=== PATIENT | female | born 1945 | race Caucasian/White ===

== ENCOUNTER 2021-04-24 12:09 | Emergency (ER) | payer MEDICARE ==
[2021-04-24] MEDS ORDERED: CIPROFLOXACIN HCL OP ONE (12:10)
[2021-04-24] MEDS ORDERED: TETRACAINE 0.5% STERI-UNIT SOL OP ONE (12:23)
[2021-04-24] MEDS ORDERED: Fluor-I-Strip/Ful-Flo OP ONE (12:23)
[2021-04-24 12:24] VITALS: O2SAT 98
[2021-04-24] MEDS: TETRACAINE 0.5% STERI-UNIT SOL OP STA (12:30)
[2021-04-24] MEDS: Eye-Stream Solution OP ONE (12:30)
[2021-04-24] MEDS: Fluor-I-Strip/Ful-Flo OP ONE (12:30)
--- NOTE | 2021-04-24 12:55 | ERPHSYRPT ---
- History of Present Illness Time Seen by Provider: 04/24/21 12:46 Source: patient Exam Limitations: no limitations Patient Subjective Stated Complaint: eye injury Triage Nursing Assessment: Patient ambulated back to ED and transferred self to bed. Patient A+O x3. Patient's skin pink, warm and dry. Patient complains of right eye injury. Patient denies injury, but states she felt like something was in her right eye yesterday. Patient light sensitive 10/10 pain. Currently 2/10 while covered. Patient's right eye noted to be red. Physician History: Patient is a 75-year-old white female who presents with severe pain and photophobia in the right eye. This started yesterday grew worse over the day bother her through the night and is still painful today. No known injury and no reason to suspect a foreign body. 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 Exposure: No Allergies/Adverse Reactions: No Known Drug Allergies Allergy (Unverified 04/24/21 12:14) Hx Influenza Vaccination/Date Given: Yes Hx Pneumococcal Vaccination/Date Given: No Immunizations Up to Date: Yes Travel Risk - International Travel Have you traveled outside of the country in past 3 weeks: No - Coronavirus Screening Are you exhibiting any of the following symptoms?: No Close contact with a COVID-19 positive Pt in past 14-21 Days: No - Vaccine Status Have you recieved a Covid-19 vaccination: Yes 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[employer] - Vaccination Dates Date of 2cond Vaccination (if applicable): July 2020 Comment: Booster Mar 2021 - Review of Systems Constitutional: No Fever, No Chills Eyes: No Symptoms Ears, Nose, & Throat: No Symptoms Respiratory: No Cough, No Dyspnea Cardiac: No Chest Pain, No Edema, No Syncope Abdominal/Gastrointestinal: No Abdominal Pain, No Nausea, No Vomiting, No Diarrhea Genitourinary Symptoms: No Dysuria Musculoskeletal: No Back Pain, No Neck Pain Skin: No Rash Neurological: No Dizziness, No Focal Weakness, No Sensory Changes Psychological: No Symptoms Endocrine: No Symptoms All Other Systems: Reviewed and Negative - Past Medical History Pertinent Past Medical History: Yes Neurological History: No Pertinent History ENT History: No Pertinent History Cardiac History: No Pertinent History Respiratory History: No Pertinent History Endocrine Medical History: Diabetes Type I Musculoskeletal History: No Pertinent History GI Medical History: Cirrhosis History: No Pertinent History Psycho-Social History: No Pertinent History Female Reproductive Disorders: No Pertinent History - Past Surgical History Past Surgical History: Yes Neuro Surgical History: No Pertinent History Gastrointestinal: Cholecystectomy Musculoskeletal: Orthopedic Surgery Female Surgical History: Hysterectomy Other Surgical History: alexus knee. 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 Eye Exam: right eye: conjunctival inflammation, corneal abrasion (Central corneal abrasion versus ulcer), left eye: normal inspection, PERRL, EOMI Ears, Nose, Throat Exam: normal ENT inspection Neck Exam: normal inspection, non-tender, supple SpO2: 98 - Course Nursing assessment & vital signs reviewed: Yes Ordered Tests: Medication Summary Discontinued Medications Generic Name Dose Route Start Last Admin Trade Name Freq PRN Reason Stop Dose Admin Fluorescein Sodium Confirm 04/24/21 12:23 Fluorescein Sodium 1 Mg/Strip Strip Administered 04/24/21 12:24 Dose 1 mg OP .STK-MED ONE Tetracaine HCl Confirm 04/24/21 12:23 Tetracaine Hcl/Pf 4 Ml Bottle Administered 04/24/21 12:24 Dose 4 ml OP .STK-MED ONE - Progress Progress: unchanged - Departure Departure Disposition: Home Clinical Impression: Corneal ulcer Condition: Stable Critical Care Time: No Referrals: CLYDE EUBANKS NP [Primary Care Provider] - Follow up/PCP as directed Instructions: Corneal Ulcer (DC) Additional Instructions: Ciprofloxacin ophthalmic solution was given in drop form in the ER. She is to continue until she sees her eye doctor tomorrow Prescriptions: Hydrocodone/Acetaminophen [Hydrocodone-Acetamin 5-325 mg] 1 tab PO Q6HPRN PRN 3 Days #12 tablet MDD 4 PRN Reason: Pain
[2021-04-24 13:05] VITALS: BP 141/86; PULSE 98
== END 2021-04-24 13:05 | disposition home or self-care (01) ==
LOC: ED 12:09
DX: H16.001 Unspecified corneal ulcer, right eye (principal); H53.141 Visual discomfort, right eye; E10.8 Type 1 diabetes mellitus with unspecified complications; Z79.4 Long term (current) use of insulin; Z79.891 Long term (current) use of opiate analgesic
CPT/HCPCS: 99283; A9270-GY

== ENCOUNTER 2021-12-14 09:04 | Day surgery (SDC) | payer MEDICARE ==
[2021-12-14] MEDS ORDERED: LIDOCAINE HCL 2% 100 MG/5 ML IJ ONE (09:05)
[2021-12-14] MEDS ORDERED: Depo-Medrol 40 MG/ML IM ONE (09:05)
[2021-12-14] MEDS ORDERED: DIPRIVAN 200 MG/20 ML IV ONE (10:26)
--- NOTE | 2021-12-14 11:27 | XRAY ---
Indication: Bilateral L4-S1 MBB. Intraoperative fluoroscopy provided for 16 seconds. Single digital spot image submitted for interpretation demonstrates posterior needle tips projecting over the expected left and right L4-S1 nerve roots. Correlate with intraoperative findings/report.
[2021-12-14] MEDS ORDERED: Lactated Ringers 1,000 ML IV ONE (12:14)
--- NOTE | 2021-12-14 14:10 | XRAY ---
16 seconds of fluoroscopy was used in surgery for a bilateral L4-S1 MBB.
== END 2021-12-14 10:50 | disposition home or self-care (01) ==
LOC: SDC-PAIN 09:04
PROVIDERS: ATTEND Psychiatry & Neurology Pain Medicine
DX: M47.816 Spondylosis without myelopathy or radiculopathy, lumbar region (principal); E11.9 Type 2 diabetes mellitus without complications; Z79.899 Other long term (current) drug therapy
CPT/HCPCS: 64493; 64494; 72020; 77002; 82947; J1030; J2704

== ENCOUNTER 2022-01-11 09:40 | Day surgery (SDC) | payer MEDICARE ==
[2022-01-11] MEDS ORDERED: BUPIVACAINE 0.5% VIAL IJ ONE (09:41)
[2022-01-11] MEDS ORDERED: Depo-Medrol 40 MG/ML IM ONE (09:41)
[2022-01-11] MEDS ORDERED: DIPRIVAN 200 MG/20 ML IV ONE ×2 (11:40→12:01)
[2022-01-11] MEDS ORDERED: Xylocaine-Mpf 2% 5 Ml Vial ONE (11:44)
[2022-01-11] MEDS ORDERED: Lactated Ringers 1,000 ML IV ONE (12:23)
--- NOTE | 2022-01-11 12:39 | XRAY ---
Indication: Bilateral L4-S1 MBB. Intraoperative fluoroscopy provided for 15 seconds. Single digital spot image submitted for interpretation demonstrates posterior needle tips projecting over the expected left and right L4-S1 nerve roots. Correlate with intraoperative findings/report.
--- NOTE | 2022-01-11 12:41 | XRAY ---
15 seconds of fluoroscopy was used in surgery for a bilateral L4-S1 MBB.
== END 2022-01-11 12:15 | disposition home or self-care (01) ==
LOC: SDC-PAIN 09:40
PROVIDERS: ATTEND Psychiatry & Neurology Pain Medicine
DX: M47.816 Spondylosis without myelopathy or radiculopathy, lumbar region (principal); E11.9 Type 2 diabetes mellitus without complications; Z79.899 Other long term (current) drug therapy
CPT/HCPCS: 64493; 64494; 72020; 77002; 82947; J1030; J2704

== ENCOUNTER 2022-02-01 09:39 | Day surgery (SDC) | payer MEDICARE ==
[2022-02-01] MEDS ORDERED: XYLOCAINE-MPF 1% 5ML SDV IJ ONE (09:40)
[2022-02-01] MEDS ORDERED: Marcaine Mpf 0.5% Vial 30 Ml IJ ONE (09:40)
[2022-02-01] MEDS ORDERED: Depo-Medrol 40 MG/ML IM ONE (09:40)
[2022-02-01] MEDS ORDERED: Lactated Ringers 1,000 ML IV ONE (10:14)
[2022-02-01] MEDS ORDERED: DIPRIVAN 200 MG/20 ML IV ONE (10:37)
--- NOTE | 2022-02-01 19:14 | XRAY ---
Indication: Right L4-S1 RFA. Intraoperative fluoroscopy provided for 26 seconds. 4 digital spot image submitted for interpretation demonstrates posterior needle tips projecting over the expected right L4-S1 nerve roots. Correlate with intraoperative findings/report.
--- NOTE | 2022-02-01 19:34 | XRAY ---
26 seconds of fluoroscopy was used in surgery for a right L4-S1 RFA.
== END 2022-02-01 11:10 | disposition home or self-care (01) ==
LOC: SDC-PAIN 09:39
PROVIDERS: ATTEND Psychiatry & Neurology Pain Medicine
DX: M47.816 Spondylosis without myelopathy or radiculopathy, lumbar region (principal); E11.9 Type 2 diabetes mellitus without complications; Z79.899 Other long term (current) drug therapy
CPT/HCPCS: 64635; 64636; 72100; 77002; 82947; 99100; J1030; J2704

== ENCOUNTER 2022-02-08 07:30 | Day surgery (SDC) | payer MEDICARE ==
[2022-02-08] MEDS ORDERED: XYLOCAINE-MPF 1% 5ML SDV IJ ONE (07:31)
[2022-02-08] MEDS ORDERED: Marcaine Mpf 0.5% Vial 30 Ml IJ ONE (07:31)
[2022-02-08] MEDS ORDERED: Depo-Medrol 40 MG/ML IM ONE (07:31)
[2022-02-08] MEDS ORDERED: DIPRIVAN 200 MG/20 ML IV ONE (08:51)
--- NOTE | 2022-02-08 10:01 | XRAY ---
Indication: Left L4-S1 RFA. Intraoperative fluoroscopy provided for 20 seconds. 5 digital spot images submitted for interpretation demonstrates posterior needle tips projecting over the expected left L4-S1 nerve roots. Correlate with intraoperative findings/report.
--- NOTE | 2022-02-08 10:06 | XRAY ---
20 seconds of fluoroscopy was used in surgery for a left L4-S1 RFA.
[2022-02-08] MEDS ORDERED: Lactated Ringers 1,000 ML IV ONE (10:16)
== END 2022-02-08 09:20 | disposition home or self-care (01) ==
LOC: SDC-PAIN 07:30
PROVIDERS: ATTEND Psychiatry & Neurology Pain Medicine
DX: M47.816 Spondylosis without myelopathy or radiculopathy, lumbar region (principal); E11.9 Type 2 diabetes mellitus without complications; Z79.899 Other long term (current) drug therapy
CPT/HCPCS: 64635; 64636; 72100; 77002; 82947; 99100; J1030; J2704

== ENCOUNTER 2022-06-16 18:43 | Emergency (ER) | payer MEDICARE ==
--- NOTE | 2022-06-16 19:19 | ERPHSYRPT ---
- History of Present Illness Source: patient, family Exam Limitations: no limitations Patient Subjective Stated Complaint: Pt states "I tripped and fell and hit my head on concrete. My left forearm hurts and both my knees are tender." Triage Nursing Assessment: PT presented alert and oriented X 3, skin pwd. Pt ambulates with a slow gait, able to speak in clear full sentences pt has bruising noted to left forehead and eyebrow, abrasion noted to left forehead, pt left cheek bruised and swollen, left upper lip swollen, bilat knee abrasions, tenderness to left forearm. Physician History: 76 yo wf tripped and fell at home injuring her glabella/L face/B forearms. Pt denies LOC but was dazed. Pain is moderate. Tetanus is up to date. Occurred: just prior to arrival Reason for Fall: tripped Injuries/Pain Location: head, face, upper (B forearms) Loss of Consciousness: no loss of consciousness, dazed Quality: aching Severity of Pain-Max: moderate Severity of Pain-Current: moderate Associated Symptoms (Fall): headache Allergies/Adverse Reactions: No Known Drug Allergies Allergy (Verified 06/16/22 18:56) Home Medications: Furosemide 40 mg [Lasix 40 MG] 40 mg PO DAILY 06/16/22 [History] Insulin Aspart [NovoLOG Insulin] 1 unit IM DAILY 06/16/22 [History] Nadolol 20 mg [Corgard 20 MG] 20 mg PO DAILY 06/16/22 [History] Ondansetron [Ondansetron Odt ] 4 mg PO Q6H PRN 06/16/22 [History] PANTOPRAZOLE 40 mg Tablet [Protonix 40MG Tablet] 40 mg PO DAILY 06/16/22 [History] Semaglutide [Ozempic] 2 mg SQ WEEKLY 06/16/22 [History] Spironolactone [Aldactone] 100 mg PO DAILY 06/16/22 [History] Sucralfate [Carafate] 1 gm PO DAILY 06/16/22 [History] Vitamin E Mixed [Vitamin E] 400 unit PO DAILY 06/16/22 [History] ursodioL [Ursodiol] 300 mg PO DAILY 06/16/22 [History] Hx Tetanus, Diphtheria Vaccination/Date Given: Yes Hx Influenza Vaccination/Date Given: Yes Hx Pneumococcal Vaccination/Date Given: No Immunizations Up to Date: Yes Travel Risk - International Travel Have you traveled outside of the country in past 3 weeks: No - Coronavirus Screening Are you exhibiting any of the following symptoms?: No Close contact with a COVID-19 positive Pt in past 14-21 Days: No - Vaccine Status Have you recieved a Covid-19 vaccination: Yes 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[employer] - Vaccination Dates Date of 2cond Vaccination (if applicable): July 2020 Comment: Booster Mar 2021 - Review of Systems Constitutional: No Symptoms Eyes: No Symptoms Ears, Nose, & Throat: No Symptoms Respiratory: No Symptoms Cardiac: No Symptoms Abdominal/Gastrointestinal: No Symptoms Genitourinary Symptoms: No Symptoms Musculoskeletal: No Symptoms, Injury Skin: No Symptoms Neurological: No Symptoms, Headache Psychological: No Symptoms Endocrine: No Symptoms Hematologic/Lymphatic: No Symptoms Immunological/Allergic: No Symptoms - Past Medical History Pertinent Past Medical History: Yes Neurological History: No Pertinent History ENT History: No Pertinent History Cardiac History: No Pertinent History Respiratory History: No Pertinent History Endocrine Medical History: Diabetes Type I Musculoskeletal History: No Pertinent History GI Medical History: Cirrhosis History: No Pertinent History Psycho-Social History: No Pertinent History Female Reproductive Disorders: No Pertinent History - Past Surgical History Past Surgical History: Yes Neuro Surgical History: No Pertinent History Gastrointestinal: Cholecystectomy Musculoskeletal: Orthopedic Surgery Female Surgical History: Hysterectomy Other Surgical History: alexus knee. left shoulder rotator cuff - Social History Smoking Status: Never smoker Exposure to second hand smoke: No Drug Use: none Patient Lives Alone: No - Nursing Vital Signs Nursing Vital Signs: Initial Vital Signs Temperature 97.8 F 06/16/22 18:50 Pulse Rate 97 H 06/16/22 18:50 Respiratory Rate 20 06/16/22 18:50 Blood Pressure 155/80 06/16/22 18:50 O2 Sat by Pulse Oximetry 98 06/16/22 18:50 Pain Scale Pain Intensity 7 Hypertensive - Margarita Coma Score Best Eye Response ([place]): (4) open spontaneously Best Verbal Response (Margarita): (5) oriented Best Motor Response ([place]): (6) obeys commands Margarita Total: 15 - Physical Exam General Appearance: no apparent distress Head Injury: swelling (L glabellar abrasion, edema, and TTP/L facial abrasion, edema, and TTP) Eye Exam: PERRL/EOMI, eyes nml inspection ENT Exam: airway nml, No evidence of ENT injury, No clear fluid (ears), No clear fluid (nose) Neck Exam: supple, trachea midline, normal inspection (C-spine NTTP) Respiratory/Chest Exam: normal breath sounds, No chest tenderness, No respiratory distress, No decreased breath sounds Cardiovascular Exam: normal heart sounds, regular rate/rhythm, normal peripheral pulses, No murmur Gastrointestinal Exam: soft, normal bowel sounds, No tenderness Back Exam: normal inspection, normal range of motion, No CVA tenderness, No vertebral tenderness (No T or L-spine TTP) Extremity Exam: normal inspection (B ventral forearms TTP/R>L/no deformity/Good radial pulses, distal sensation, and capillary return B), pelvis stable Neurologic Exam: alert, oriented x 3, 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, 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, normal mood/affect, sensation nml, No motor deficits, No sensory deficit Skin Exam: normal color, warm, dry, No rash SpO2 Interpretation: normal SpO2: 98 O2 Delivery: Room Air - Course Nursing assessment & vital signs reviewed: Yes - Radiology Exams Forearm X-ray Interpretation: Interpreted by me (B forearm's neg per ER read) - CT Exams Head CT Interpretation: Tele-radiologist Report (CT head neg per [employer]) Maxillofacial Bones CT Interpretation: Tele-radiologist Report (CT face neg per [employer]) Ordered Tests: Active Orders 24 hr Category Date Time Status FACIAL BONES WO CONTRAST [CT] Stat Exams 06/16/22 19:12 Taken FOREARM Stat Exams 06/16/22 19:12 Taken FOREARM Stat Exams 06/16/22 19:13 Taken HEAD WITHOUT CONTRAST [CT] Stat Exams 06/16/22 19:12 Taken Medication Summary Discontinued Medications Generic Name Dose Route Start Last Admin Trade Name Freq PRN Reason Stop Dose Admin Hydrocodone Bitart/Acetaminophen 2 tab 06/16/22 19:55 06/16/22 19:57 Hydrocodone/Apap 5/325 1 Tab Tablet PO 06/16/22 19:56 2 tab SENT HOME W/ PATIENT ONE Administration Hydrocodone Bitart/Acetaminophen Confirm 06/16/22 19:56 Hydrocodone/Apap 5/325 1 Tab Tablet Administered 06/16/22 19:57 Dose 2 tab .ROUTE .STK-MED ONE Ketorolac Tromethamine 15 mg 06/16/22 19:49 06/16/22 19:53 Ketorolac Tromethamine 30 Mg/Ml Inj IM 06/16/22 19:50 15 mg STAT ONE Administration Ketorolac Tromethamine Confirm 06/16/22 19:52 Ketorolac Tromethamine 30 Mg/Ml Inj Administered 06/16/22 19:53 Dose 30 mg .ROUTE .STK-MED ONE - Progress Progress: improved Progress Note: 06/16/22 19:50 Nursing note and vital signs reviewed XR's read per ER physician and shared w pt CT head/face results reviewed and shared w pt Additional history per family No food or housing insecurities noted Pt initially refused pain meds but later requested pain meds/15mg IM Toradol Counseled pt/family regarding: diagnosis, need for follow-up, rad results Medical Desision Making - Independent Historian Additional History obtained from: Father - Diagnostic Testing Diagnostic Testing: Diagnostic tests were ordered,analyzed, and reviewed by me and used in my medical decision making for this patient. Radiologic studies (if ordered) were read by me initially then discussed with the radiologist . - Risk of complications Low Risk: Low risk of morbidity from additional dx testing or treatment - Departure Departure Disposition: Home Clinical Impression: Minor head injury, Facial contusion, Forearm contusion Condition: Stable Critical Care Time: No Referrals: CLYDE EUBANKS NP [Primary Care Provider] - Follow up/PCP as directed Instructions: Concussion, Adult (DC), Closed Head Injury (DC) Additional Instructions: Ice for 12-24 hours Pain meds as needed Return to ER for worsening of symptoms Wash abrasions twice a day with soap/water Watch for signs of infection-increasing pain/increasing redness/any pus
[2022-06-16] MEDS ORDERED: TORAdol 30 mg Injection IM ONE (19:49)
[2022-06-16] MEDS ORDERED: TORAdol 30 mg Injection ONE (19:52)
[2022-06-16] MEDS ORDERED: NORCO 5/325 MG PO ONE (19:55)
[2022-06-16] MEDS ORDERED: NORCO 5/325 MG ONE (19:56)
[2022-06-16 20:03] VITALS: BP 127/77; PULSE 88
[2022-06-16 23:12] VITALS: O2SAT 98
--- NOTE | 2022-06-17 08:23 | XRAY ---
Indication: Pain following fall. Comparison: None 2 view right forearm demonstrates osteopenia, radiocarpal joint space narrowing, and mild 1st metacarpal multangular scaphoid degenerative changes. Query old 5th metacarpal shaft fracture. No other bony, articular, or soft tissue abnormalities.
--- NOTE | 2022-06-17 08:25 | XRAY ---
Indication: Pain following fall. Comparison: None 2 view left forearm demonstrates osteopenia, radiocarpal joint space narrowing, and minimal 1st metacarpal multangular scaphoid degenerative changes. No other bony, articular, or soft tissue abnormalities.
--- NOTE | 2022-06-17 08:25 | XRAY ---
Indication: Abrasion left forehead and cheek following fall. Multiple contiguous axial images obtained through the head without contrast. Comparison: None Age-appropriate global atrophy and mild left forehead soft tissue swelling. No acute intracranial hemorrhage, abnormal extra-axial fluid collection, or mass effect. Fourth ventricle is midline without hydrocephalus. Silva-white matter differentiation preserved. Bony calvarium intact. Visualized paranasal sinuses and mastoid air cells are clear. Impression: Left forehead soft tissue swelling. No underlying fracture or acute intracranial abnormalities. Comment: Preliminary interpretation made by [facility]. No critical discrepancy.
--- NOTE | 2022-06-17 08:27 | XRAY ---
Indication: Abrasion left forehead and cheek following fall. Multiple contiguous axial images obtained through the facial bones. Sagittal and coronal reformatted images obtained. Comparison: None Beam artifact from dental amalgams. Mild left forehead soft tissue swelling. No acute fracture, suspicious bone lesions, or radiopaque foreign body. Orbits including roof, morrell, and floors intact. Paranasal sinuses and nasal passages are clear. Minimal nasal septal deviation to the left. Visualized cervical spine is intact with mild degenerative changes. Visualized noncontrasted soft tissues are unremarkable. Impression: Left forehead soft tissue swelling and cervical degenerative changes. Remaining CT facial bones negative. Comment: Preliminary interpretation made by [facility]. No critical discrepancy.
== END 2022-06-16 20:16 | disposition home or self-care (01) ==
LOC: ED 18:43
DX: S09.90XA Unspecified injury of head, initial encounter (principal); S00.83XA Contusion of other part of head, initial encounter; S50.12XA Contusion of left forearm, initial encounter; S50.11XA Contusion of right forearm, initial encounter; W01.198A Fall on same level from slipping, tripping and stumbling with subsequent striking against other object, initial encounter; E10.9 Type 1 diabetes mellitus without complications; Z79.4 Long term (current) use of insulin; Z79.85 Long-term (current) use of injectable non-insulin antidiabetic drugs; Z79.899 Other long term (current) drug therapy
CPT/HCPCS: 70450; 70486; 73090; 96372; 99283; J1885; A9270-GY

== ENCOUNTER 2023-01-22 20:13 | Emergency (ER) | payer MEDICARE ==
--- NOTE | 2023-01-22 20:25 | ERPHSYRPT ---
- History of Present Illness Time Seen by Provider: 01/22/23 20:25 Source: patient, family Exam Limitations: no limitations Physician History: This is a 77-year-old white female patient brought into the emergency department by her daughter secondary to the patient falling onto her left knee and proximal left tib-fib prior to arrival. Patient was brought to the emergency department by private vehicle. The patient's daughter provided independent, additional medical history. Patient and daughter both state that patient, in the last several weeks, has been feeling more weak, off balance and intermittently confused. Several months ago patient underwent a TIPS procedure. She has had times where she has had confusion secondary to ammonia and patient was placed on lactulose. Patient has a history of cirrhosis of undetermined cause. Patient has a history of insulin-dependent diabetes, hyperlipidemia, hypertension. Patient denies chest pain. Patient denies shortness of breath. Occurred: just prior to arrival, other (Symptoms seem to be progressing over the last several weeks.) Reason for Fall: lost balance (And associated weakness) Injuries/Pain Location: lower extremity (Left knee and proximal left tib-fib) Loss of Consciousness: no loss of consciousness Quality: aching Severity of Pain-Max: mild Severity of Pain-Current: mild Modifying Factors: Improves With: movement Associated Symptoms (Fall): confusion (Has been intermittently confused more often in the last few weeks), extremity injury (Left knee) Allergies/Adverse Reactions: No Known Drug Allergies Allergy (Verified 01/22/23 20:38) Home Medications: Furosemide 40 mg [Lasix 40 MG] 40 mg PO DAILY 06/16/22 [History] Insulin Aspart [NovoLOG Insulin] 16 unit SQ AC 06/16/22 [History] Nadolol 20 mg [Corgard 20 MG] 20 mg PO DAILY 06/16/22 [History] Ondansetron [Ondansetron Odt ] 4 mg PO Q6H PRN 06/16/22 [History] Spironolactone [Aldactone] 100 mg PO DAILY 06/16/22 [History] Sucralfate [Carafate] 1 gm PO BID 06/16/22 [History] Vitamin E Mixed [Vitamin E] 400 unit PO BID 06/16/22 [History] ursodioL [Ursodiol] 600 mg PO BID 06/16/22 [History] ALPRAZolam 0.25 MG [xanAX 0.25 MG] 0.25 mg PO BIDPRN PRN 01/22/23 [History] Doxepin HCl 6 mg PO HS 01/22/23 [History] Duloxetine HCl [Cymbalta] 60 mg PO DAILY 01/22/23 [History] Esomeprazole Magnesium [Nexium] 40 mg PO DAILY 01/22/23 [History] Insulin Glargine,Hum.rec.anlog [Basaglar Kwikpen U-100] 48 unit SQ HS 01/22/23 [History] Lactulose [Lactulose 20 gm/30Ml Ud Cup] 20 gm PO BID 01/22/23 [History] Pravastatin Sodium 20 mg PO DAILY 01/22/23 [History] Rifaximin [Xifaxan] 550 mg PO DAILY 01/22/23 [History] Hx Tetanus, Diphtheria Vaccination/Date Given: Yes Hx Influenza Vaccination/Date Given: Yes Hx Pneumococcal Vaccination/Date Given: No Travel Risk - International Travel Have you traveled outside of the country in past 3 weeks: No - Coronavirus Screening Are you exhibiting any of the following symptoms?: No Close contact with a COVID-19 positive Pt in past 14-21 Days: No - Vaccine Status Have you recieved a Covid-19 vaccination: Yes [employer]: [employer] - Vaccination Dates Date of 2cond Vaccination (if applicable): July 2020 Comment: Booster Mar 2021 - Review of Systems Constitutional: Weakness (Generalized) Eyes: No Symptoms Ears, Nose, & Throat: No Symptoms Respiratory: No Symptoms Cardiac: No Symptoms Abdominal/Gastrointestinal: No Symptoms Genitourinary Symptoms: No Symptoms Musculoskeletal: Fall, Injury Skin: No Symptoms (Left knee) Neurological: No Symptoms Psychological: No Symptoms Endocrine: No Symptoms Hematologic/Lymphatic: No Symptoms Immunological/Allergic: No Symptoms All Other Systems: Reviewed and Negative - Past Medical History Pertinent Past Medical History: Yes Neurological History: No Pertinent History ENT History: No Pertinent History Cardiac History: No Pertinent History Respiratory History: No Pertinent History Endocrine Medical History: Diabetes Type I Musculoskeletal History: No Pertinent History GI Medical History: Cirrhosis History: No Pertinent History Psycho-Social History: No Pertinent History Female Reproductive Disorders: No Pertinent History - Past Surgical History Past Surgical History: Yes Neuro Surgical History: No Pertinent History Gastrointestinal: Cholecystectomy Musculoskeletal: Orthopedic Surgery Female Surgical History: Hysterectomy Other Surgical History: alexus knee. left shoulder rotator cuff - Social History Smoking Status: Never smoker Exposure to second hand smoke: No Drug Use: none Patient Lives Alone: No - Nursing Vital Signs Nursing Vital Signs: Initial Vital Signs Pulse Rate 96 H 01/22/23 20:24 Respiratory Rate 22 01/22/23 20:24 Blood Pressure 141/80 01/22/23 20:24 O2 Sat by Pulse Oximetry 100 01/22/23 20:24 Pain Scale Pain Intensity 6 - [place] Coma Score Best Eye Response ([place]): (4) open spontaneously Best Verbal Response ([place]): (5) oriented Best Motor Response ([place]): (6) obeys commands Margarita Total: 15 - Physical Exam General Appearance: no apparent distress, alert, anxiety Head Injury: no evidence of injury Eye Exam: PERRL/EOMI, eyes nml inspection ENT Exam: airway nml, nml ext.inspection Neck Exam: supple, trachea midline, full range of motion, normal alignment, normal inspection Respiratory/Chest Exam: normal breath sounds, No chest tenderness, No respiratory distress, No crepitus Cardiovascular Exam: normal heart sounds, regular rate/rhythm Gastrointestinal Exam: soft, normal bowel sounds, No tenderness Rectal Exam: not done Back Exam: normal inspection, normal range of motion, vertebral tenderness, No CVA tenderness Extremity Exam: normal range of motion, tenderness (Anterior left knee), No pelvis stable, No deformities Neurologic Exam: alert, oriented x 3, cooperative, manager life insurance II-XII nml as tested, normal mood/affect, sensation nml Skin Exam: normal color, warm, dry SpO2 Interpretation: normal O2 Delivery: Room Air - Course Nursing assessment & vital signs reviewed: Yes Ordered Tests: Active Orders 24 hr Category Date Time Status EKG-ER Only STAT Care 01/22/23 20:38 Active IV Insertion STAT Care 01/22/23 20:38 Active HEAD WITHOUT CONTRAST [CT] Stat Exams 01/22/23 20:40 Taken KNEE (1 OR 2 VIEW) Stat Exams 01/22/23 20:40 Taken LOWER LEG Stat Exams 01/22/23 20:40 Taken CBC W DIFF Stat Lab 01/22/23 21:00 Completed CMP Stat Lab 01/22/23 21:00 Completed TROPONIN Q4H Lab 01/22/23 21:00 Completed TROPONIN Q4H Lab 01/23/23 00:45 Ordered TROPONIN Q4H Lab 01/23/23 04:45 Ordered UA W/RFX UR CULTURE Stat Lab 01/22/23 22:37 Completed Medication Summary Generic Name Dose Route Start Last Admin Trade Name Madan PRN Reason Stop Dose Admin Lactulose 30 gm 01/23/23 22:14 01/22/23 22:16 Lactulose 20 Gm/30 Ml Udcup PO 01/23/23 22:15 30 gm STAT ONE Administration Discontinued Medications Generic Name Dose Route Start Last Admin Trade Name Madan PRN Reason Stop Dose Admin Sodium Chloride 1,000 mls @ 999 mls/hr 01/22/23 20:38 01/22/23 21:33 Sodium Chloride 0.9% 1000 Ml IV 01/22/23 21:38 250 mls/hr .Q1H1M STA Administration Sodium Chloride Confirm 01/22/23 21:29 Sodium Chloride 0.9% 1000 Ml Administered 01/22/23 21:30 Dose 1,000 mls @ ud .ROUTE .STK-MED ONE Lactulose 30 g 01/22/23 21:45 01/22/23 22:15 Lactulose 10 G/15 Ml Ml PO 01/22/23 21:46 Not Given STAT ONE Lab/Rad Data: Laboratory Result Diagrams 01/22/23 21:00 01/22/23 21:00 Laboratory Results 01/22/23 01/22/23 01/22/23 Range/Units 22:37 21:00 21:00 WBC (4.0-10.5) x10^3/uL RBC (4.1-5.4) x10^6/uL Hgb (12.0-16.0) g/dL Hct (35-47) % MCV (78-100) fL MCH (26-32) pg MCHC (32-36) g/dL RDW (11.5-14.0) % Plt Count (150-450) x10^3/uL MPV (7.5-11.0) fL Gran % (36.0-66.0) % Immature Gran % (Auto) (0.00-0.4) % Nucleat RBC Rel Count (0.00-0.1) % Eos # (Auto) (0-0.5) x10^3/uL Immature Gran # (Auto) (0.00-0.03) x10^3u/L Absolute Lymphs (auto) (1.0-4.6) x10^3/uL Absolute Monos (auto) (0.0-1.3) x10^3/uL Absolute Nucleated RBC (0.00-0.01) x10^3u/L Lymphocytes % (24.0-44.0) % Monocytes % (0.0-12.0) % Eosinophils % (0.00-5.0) % Basophils % (0.0-0.4) % Absolute Granulocytes (1.4-6.9) x10^3/uL Basophils # (0-0.4) x10^3/uL Sodium (137-145) mmol/L Potassium (3.5-5.1) mmol/L Chloride (98-107) mmol/L Carbon Dioxide (22-30) mmol/L Anion Gap (5-15) MEQ/L BUN (7-17) mg/dL Creatinine (0.52-1.04) mg/dL Estimated GFR ML/MIN Glucose (74-106) mg/dL Calcium (8.4-10.2) mg/dL Total Bilirubin (0.2-1.3) mg/dL AST (14-36) U/L ALT (0-35) U/L Alkaline Phosphatase (38-126) U/L Ammonia 68 H (9-30) umol/L Troponin I < 0.012 (0.000-0.034) ng/mL Serum Total Protein (6.3-8.2) g/dL Albumin (3.5-5.0) g/dL Urine Color Dark Yellow A (Yellow) Urine Appearance Clear (Clear) Urine pH 6.0 (4.6-8.0) Ur Specific [place] 1.025 (1.005-1.030) Urine Protein Negative (Negative) Urine Glucose (UA) >=1000 A (Negative) mg/dL Urine Ketones Trace A (Negative) Urine Blood Negative (Negative) Urine Nitrite Negative (Negative) Urine Bilirubin Negative (Negative) Urine Urobilinogen 2.0 A (0.2) mg/dL Ur Leukocyte Esterase Small A (Negative) U Hyaline Cast (Auto) NONE SEEN (0-2) /LPF Urine Microscopic RBC 0-2 (0-5) /HPF Urine Microscopic WBC 6-10 A (0-5) /HPF Ur Epithelial Cells Rare (None Seen) /HPF Urine Bacteria None Seen (None Seen) /HPF Urine Culture Reflexed NO (NO) 01/22/23 01/22/23 Range/Units 21:00 21:00 WBC 3.7 L (4.0-10.5) x10^3/uL RBC 3.95 L (4.1-5.4) x10^6/uL Hgb 12.1 (12.0-16.0) g/dL Hct 36.8 (35-47) % MCV 93.2 (78-100) fL MCH 30.6 (26-32) pg MCHC 32.9 (32-36) g/dL RDW 14.8 H (11.5-14.0) % Plt Count 133 L (150-450) x10^3/uL MPV 8.2 (7.5-11.0) fL Gran % 52.2 (36.0-66.0) % Immature Gran % (Auto) 0.0 (0.00-0.4) % Nucleat RBC Rel Count 0.0 (0.00-0.1) % Eos # (Auto) 0.16 (0-0.5) x10^3/uL Immature Gran # (Auto) 0.00 (0.00-0.03) x10^3u/L Absolute Lymphs (auto) 1.13 (1.0-4.6) x10^3/uL Absolute Monos (auto) 0.48 (0.0-1.3) x10^3/uL Absolute Nucleated RBC 0.00 (0.00-0.01) x10^3u/L Lymphocytes % 30.2 (24.0-44.0) % Monocytes % 12.8 H (0.0-12.0) % Eosinophils % 4.3 (0.00-5.0) % Basophils % 0.5 (0.0-0.4) % Absolute Granulocytes 1.95 (1.4-6.9) x10^3/uL Basophils # 0.02 (0-0.4) x10^3/uL Sodium 137 (137-145) mmol/L Potassium 3.9 (3.5-5.1) mmol/L Chloride 103 (98-107) mmol/L Carbon Dioxide 26 (22-30) mmol/L Anion Gap 12.6 (5-15) MEQ/L BUN 18 H (7-17) mg/dL Creatinine 0.69 (0.52-1.04) mg/dL Estimated GFR > 60.0 ML/MIN Glucose 289 H (74-106) mg/dL Calcium 8.8 (8.4-10.2) mg/dL Total Bilirubin 1.00 (0.2-1.3) mg/dL AST 45 H (14-36) U/L ALT 28 (0-35) U/L Alkaline Phosphatase 201 H (38-126) U/L Ammonia (9-30) umol/L Troponin I (0.000-0.034) ng/mL Serum Total Protein 6.7 (6.3-8.2) g/dL Albumin 3.5 (3.5-5.0) g/dL Urine Color (Yellow) Urine Appearance (Clear) Urine pH (4.6-8.0) Ur Specific [place] (1.005-1.030) Urine Protein (Negative) Urine Glucose (UA) (Negative) mg/dL Urine Ketones (Negative) Urine Blood (Negative) Urine Nitrite (Negative) Urine Bilirubin (Negative) Urine Urobilinogen (0.2) mg/dL Ur Leukocyte Esterase (Negative) U Hyaline Cast (Auto) (0-2) /LPF Urine Microscopic RBC (0-5) /HPF Urine Microscopic WBC (0-5) /HPF Ur Epithelial Cells (None Seen) /HPF Urine Bacteria (None Seen) /HPF Urine Culture Reflexed (NO) - Progress Progress: improved, pain not gone completely, re-examined Progress Note: 01/22/23 21:55 This patient's medical issue is 1 of moderate complexity. Level complexity in the work-up performed is based on review the patient's past medical history, review of patient's medication list, review of patient drug allergy list, history of present illness and physical findings on examination. Work-up in this patient includes placement of an intravenous line, infusion of normal saline solution, twelve-lead EKG, CBC, CMP, ammonia level, troponin level, urinalysis, CT scan of the head, x-ray of the left knee and left lower leg. I reviewed the laboratory data. The patient does have an elevated ammonia level. I do not believe its elevated enough for the patient to be admitted or placed in observation in the hospital. However, the patient is only taking 30 mL twice a day. We will increase that to 3 times a day. We will provide the patient with 45 mL orally now. I am waiting for the urinalysis to evaluate for dehydration and urinary tract infection. I interpreted the x-ray of the left knee. There is no evidence of any acute fracture or dislocation. The hardware appears to be intact. I interpreted the x-ray of the left tib-fib. There is no evidence of any acute fracture or dislocation. 01/22/23 22:49 CT scan of the head without contrast was interpreted by the radiologist. There is no evidence of acute intracranial abnormality. Counseled pt/family regarding: lab results, diagnosis, need for follow-up, rad results Medical Desision Making - Independent Historian Additional History obtained from: Child (Patient's daughter) - Diagnostic Testing Diagnostic test were ordered, analyzed, and reviewed by me: Yes Radiological Interpretation: Interpreted by me, Reviewed by me, Teleradiologist Report - Risk of complications The pt has a mod risk of morbidity or mortality based on: Need for prescription drug management - Departure Departure Disposition: Home Clinical Impression: Weakness, Imbalance, Hyperammonemia, UTI (urinary tract infection) Condition: Stable Critical Care Time: No Referrals: CLYDE EUBANKS, SENIOR SOFTWARE ANALYST [Primary Care Provider] - Follow up/PCP as directed Additional Instructions: Drink plenty of fluids. Take your medication as prescribed. Increase your lactulose to 30 mL 3 times a day. Call your primary care doctor tomorrow, 01/23/2023, to make a follow-up appointment and to repeat the ammonia level in 48 hours. Prescriptions: Ciprofloxacin [Cipro 500 MG] 500 mg PO BID #14 tablet
[2023-01-22 20:38] VITALS: TEMP 97.7
[2023-01-22] MEDS ORDERED: Sodium Chloride 0.9% 1000 ML 1,000 ML IV STA (20:38)
[2023-01-22 21:03] LABS: Absolute Neutrophil Ct (ANC) 1.95 x10^3/uL (1.4-6.9); BASOPHIL % 0.5 % (0.0-0.4); Basophil (Absolute #) 0.02 x10^3/uL (0-0.4); Eosinophil % 4.3 % (0.00-5.0); Eosinophil (Absolute #) 0.16 x10^3/uL (0-0.5); Hematocrit 36.8 % (35-47); Hemoglobin 12.1 g/dL (12.0-16.0); Lymphocyte (Absolute #) 1.13 x10^3/uL (1.0-4.6); Lymphocytes % 30.2 % (24.0-44.0); Mean Cell Volume 93.2 fL (78-100); Mean Corpuscular Hemoglobin 30.6 pg (26-32); Mean Corpuscular Hgb Concent. 32.9 g/dL (32-36); Mean Platelet Volume 8.2 fL (7.5-11.0); Monocyte (Absolute #) 0.48 x10^3/uL (0.0-1.3); Monocytes % 12.8 % (0.0-12.0); Neutrophil % 52.2 % (36.0-66.0); Platelet Count 133 x10^3/uL (150-450); Red Blood Count 3.95 x10^6/uL (4.1-5.4); Red Cell Distribution Width 14.8 % (11.5-14.0); White Blood Count 3.7 x10^3/uL (4.0-10.5)
[2023-01-22 21:17] LABS: ALBUMIN 3.5 g/dL (3.5-5.0); ALKALINE PHOSPHATASE 201 U/L (38-126); ANION GAP 12.6 MEQ/L (5-15); BLOOD UREA NITROGEN 18 mg/dL (7-17); CHLORIDE 103 mmol/L (98-107); Calcium 8.8 mg/dL (8.4-10.2); Carbon Dioxide 26 mmol/L (22-30); Creatinine 1 0.69 mg/dL (0.52-1.04); EST GLOMERULAR FILTRATION RATE > 60.0 ML/MIN; Glucose 289 mg/dL (74-106); Potassium 3.9 mmol/L (3.5-5.1); SGOT/AST 45 U/L (14-36); SGPT/ALT 28 U/L (0-35); SODIUM 137 mmol/L (137-145); Total Protein 6.7 g/dL (6.3-8.2)
[2023-01-22] MEDS ORDERED: Sodium Chloride 0.9% 1000 ML 1,000 ML ONE (21:29)
[2023-01-22] MEDS ORDERED: Enulose 10 GM/15 ML PO ONE (21:45)
[2023-01-22] MEDS ORDERED: LACTULOSE 20 GM/30ML UD CUP ONE ×2 (22:00→22:07)
[2023-01-22 22:49] LABS: Appearance Clear (Clear); Bacteria None Seen /HPF (None Seen); Bilirubin Negative (Negative); Blood Negative (Negative); Epithelial Cells Rare /HPF (None Seen); Glucose, Urine >=1000 mg/dL (Negative); Hyaline Casts NONE SEEN /LPF (0-2); Ketones Trace (Negative); Leukocyte Esterase Small (Negative); Nitrite Negative (Negative); Protein,Urine Dip Negative (Negative); RBC 0-2 /HPF (0-5); Specific Gravity 1.025 (1.005-1.030)
[2023-01-22 22:56] LABS: ADD URINE CULTURE? NO (NO)
[2023-01-22] MEDS ORDERED: Levofloxacin 500 MG Tablet PO ONE (23:00)
[2023-01-22] MEDS ORDERED: Levofloxacin 500 MG Tablet ONE (23:13)
[2023-01-22 23:23] VITALS: BP 143/52; PULSE 97; RESP 14; O2SAT 98
--- NOTE | 2023-01-23 08:33 | XRAY ---
Indication: Confusion. Multiple contiguous axial images obtained through the head without contrast. Comparison: June 16, 2022 Normal appearing brain parenchyma, ventricles, and bony calvarium for patient's age. Visualized paranasal sinuses and mastoid air cells are clear. Impression: Continued normal CT head without contrast exam.
--- NOTE | 2023-01-23 08:38 | XRAY ---
Indication: Pain following fall. Comparison: None AP/lateral left lower leg demonstrates osteopenia, total knee arthroplasty with intact prosthesis/articulation, and tiny heel spurs. No other bony, articular, or soft tissue abnormalities.
--- NOTE | 2023-01-23 08:38 | XRAY ---
Indication: Pain following fall. Comparison: None AP/lateral left knee demonstrates osteopenia and total knee arthroplasty with intact prosthesis/articulation. No other bony, articular, or soft tissue abnormalities.
[2023-01-23] MEDS ORDERED: LACTULOSE 20 GM/30ML UD CUP PO ONE (22:14)
== END 2023-01-22 23:38 | disposition home or self-care (01) ==
LOC: ED 20:13
DX: R53.1 Weakness (principal); R26.89 Other abnormalities of gait and mobility; E72.20 Disorder of urea cycle metabolism, unspecified; N39.0 Urinary tract infection, site not specified; M25.562 Pain in left knee; M79.605 Pain in left leg; E10.9 Type 1 diabetes mellitus without complications; E78.5 Hyperlipidemia, unspecified; I10 Essential (primary) hypertension; Z79.4 Long term (current) use of insulin; Z79.899 Other long term (current) drug therapy
CPT/HCPCS: 36000; 36415; 70450; 73560; 73590; 80053; 81001; 82140; 84484; 85025; 93005; 99284; A9270-GY

== ENCOUNTER 2023-02-21 06:55 | Day surgery (SDC) | payer MEDICARE ==
[2023-02-21] MEDS ORDERED: BUPIVACAINE 0.5% VIAL IJ ONE (06:56)
[2023-02-21] MEDS ORDERED: LIDOCAINE HCL 1% 50 MG/5 ML VL PF IJ ONE ×2 (06:56)
[2023-02-21] MEDS ORDERED: Depo-Medrol 40 MG/ML IM ONE (06:56)
[2023-02-21] MEDS ORDERED: Decadron 4 MG INJ IV ONE (06:56)
[2023-02-21] MEDS ORDERED: DIPRIVAN 200 MG/20 ML IV ONE (07:56)
--- NOTE | 2023-02-21 13:54 | XRAY ---
24 seconds of fluoroscopy was used in surgery for a right L4-S1 RFA.
--- NOTE | 2023-02-21 13:54 | XRAY ---
Indication: Right L4-S1 RFA. Intraoperative fluoroscopy provided for 24 seconds. 3 digital spot images submitted for interpretation demonstrates posterior needle tips projecting over the expected right L4-S1 nerve roots. Correlate with intraoperative findings/report.
[2023-02-21] MEDS ORDERED: Lactated Ringers 1,000 ML IV ONE (14:56)
== END 2023-02-21 08:28 | disposition home or self-care (01) ==
LOC: SDC-PAIN 06:55
PROVIDERS: ATTEND Psychiatry & Neurology Pain Medicine
DX: M47.816 Spondylosis without myelopathy or radiculopathy, lumbar region (principal); E11.9 Type 2 diabetes mellitus without complications; Z79.899 Other long term (current) drug therapy
CPT/HCPCS: 64635; 64636; 72100; 77002; 82947; 99100; J1030; J1100; J2001; J2704

== ENCOUNTER 2023-02-22 06:42 | Day surgery (SDC) | payer MEDICARE ==
[2023-02-22] MEDS ORDERED: XYLOCAINE 1% HCL 20 ML MDV IJ ONE (06:43)
[2023-02-22] MEDS ORDERED: BUPIVACAINE 0.5% VIAL IJ ONE (06:43)
[2023-02-22] MEDS ORDERED: Depo-Medrol 40 MG/ML IM ONE (06:43)
[2023-02-22] MEDS ORDERED: DIPRIVAN 200 MG/20 ML IV ONE (08:10)
[2023-02-22] MEDS ORDERED: Lactated Ringers 1,000 ML IV ONE (08:40)
--- NOTE | 2023-02-22 10:58 | XRAY ---
Indication: Left L4-S1 RFA. Intraoperative fluoroscopy provided for 30 seconds. 4 digital spot images submitted for interpretation demonstrates posterior needle tips projecting over the expected left L4-S1 nerve roots. Correlate with intraoperative findings/report. Incidental overlying electronic monitoring device.
--- NOTE | 2023-02-22 12:33 | XRAY ---
30 seconds of fluoroscopy was used in surgery for a left L4-S1 RFA.
== END 2023-02-22 08:40 | disposition home or self-care (01) ==
LOC: SDC-PAIN 06:42
PROVIDERS: ATTEND Psychiatry & Neurology Pain Medicine
DX: M47.816 Spondylosis without myelopathy or radiculopathy, lumbar region (principal); E11.9 Type 2 diabetes mellitus without complications
CPT/HCPCS: 64635; 64636; 72100; 77002; 82947; J1030; J2704

== ENCOUNTER 2024-02-13 07:00 | Day surgery (SDC) | payer MEDICARE ==
[2024-02-13] MEDS ORDERED: Depo-Medrol 40 MG/ML IM ONE (07:01)
[2024-02-13] MEDS ORDERED: LIDOCAINE HCL 1% AMPUL 5 ML IJ ONE (07:01)
[2024-02-13] MEDS ORDERED: DIPRIVAN 200 MG/20 ML IV ONE (08:25)
--- NOTE | 2024-02-13 09:00 | XRAY ---
Indication: Bilateral L2-L4 MBB. Interpretive fluoroscopy provided for 15 seconds. Single digital spot image submitted for interpretation demonstrates posterior needle tips projecting over the expected left and right L2-L4 nerve roots. Correlate with intraoperative findings/report. Incidental L1 kyphoplasty.
[2024-02-13] MEDS ORDERED: Lactated Ringers 1,000 ML IV ONE (09:40)
--- NOTE | 2024-02-13 13:01 | XRAY ---
15 seconds of fluoroscopy was used in surgery for a bilateral L2-L4 MBB.
== END 2024-02-13 08:55 | disposition home or self-care (01) ==
LOC: SDC-PAIN 07:00
PROVIDERS: ATTEND Psychiatry & Neurology Pain Medicine
DX: M47.816 Spondylosis without myelopathy or radiculopathy, lumbar region (principal); E11.9 Type 2 diabetes mellitus without complications
CPT/HCPCS: 64493; 64494; 72020; 77002; 82947; J2704

== ENCOUNTER 2024-03-26 06:56 | Day surgery (SDC) | payer MEDICARE ==
[2024-03-26] MEDS ORDERED: Depo-Medrol 40 MG/ML IM ONE (06:57)
[2024-03-26] MEDS ORDERED: BUPIVACAINE 0.5% VIAL IJ ONE (06:57)
[2024-03-26] MEDS ORDERED: D50W 50 ml Abboject IV ONE (07:45)
[2024-03-26] MEDS ORDERED: D50W 50ML Vial IV ONE (07:45)
[2024-03-26] MEDS ORDERED: DIPRIVAN 200 MG/20 ML IV ONE (08:04)
--- NOTE | 2024-03-26 12:56 | XRAY ---
Indication: Bilateral L2-L4 MBB. Intraoperative fluoroscopy provided for 25 seconds. 3 digital spot image submitted for interpretation demonstrates posterior needle tips projecting over expected left and right L2-L4 nerve roots. Correlate with intraoperative findings/report. Incidental incompletely visualized lower thoracic kyphoplasty and intrahepatic portosystemic stent.
--- NOTE | 2024-03-26 14:47 | XRAY ---
25 seconds of fluoroscopy was used in surgery for a bilateral L2-L4 MBB.
== END 2024-03-26 08:56 | disposition home or self-care (01) ==
LOC: SDC-PAIN 06:56
PROVIDERS: ATTEND Psychiatry & Neurology Pain Medicine
DX: M47.816 Spondylosis without myelopathy or radiculopathy, lumbar region (principal); E11.9 Type 2 diabetes mellitus without complications
CPT/HCPCS: 64493; 64494; 72020; 77002; 82947; J2704

== ENCOUNTER 2024-04-17 07:54 | Day surgery (SDC) | payer MEDICARE ==
[2024-04-17] MEDS ORDERED: DIPRIVAN 200 MG/20 ML IV ONE (09:32)
[2024-04-17] MEDS ORDERED: Xylocaine-Mpf 2% 5 Ml Vial ONE (09:33)
--- NOTE | 2024-04-17 10:58 | XRAY ---
Indication: Right L2-L4 RFA. Intraoperative fluoroscopy provided for 44 seconds. 5 digital spot image submitted for interpretation demonstrates posterior needle tips projecting over the expected right L2-L4 nerve roots. Correlate with intraoperative findings/report.
--- NOTE | 2024-04-17 12:21 | XRAY ---
44 seconds of fluoroscopy was used in surgery for a right L2-L4 RFA.
== END 2024-04-17 10:15 | disposition home or self-care (01) ==
LOC: SDC-PAIN 07:54
PROVIDERS: ATTEND Psychiatry & Neurology Pain Medicine
DX: M47.816 Spondylosis without myelopathy or radiculopathy, lumbar region (principal); E11.9 Type 2 diabetes mellitus without complications
CPT/HCPCS: 64635; 64636; 72100; 77002; 82947; 99100; J2704

== ENCOUNTER 2024-04-23 07:48 | Day surgery (SDC) | payer MEDICARE ==
[2024-04-23] MEDS ORDERED: BUPIVACAINE 0.5% VIAL IJ ONE (07:49)
[2024-04-23] MEDS ORDERED: Depo-Medrol 40 MG/ML IM ONE (07:49)
[2024-04-23] MEDS ORDERED: LIDOCAINE HCL 1% AMPUL 5 ML IJ ONE (07:49)
[2024-04-23] MEDS ORDERED: DIPRIVAN 200 MG/20 ML IV ONE (08:59)
--- NOTE | 2024-04-23 10:08 | XRAY ---
Indication: Left L2-L4 RFA. Intraoperative fluoroscopy provided for 30 seconds. 9 digital spot image submitted for interpretation demonstrates posterior needle tips projecting over expected left L2-L4 nerve roots. Correlate with intraoperative findings/report. Incidental T11-L1 vertebroplasty and incompletely visualized right renal artery stent
--- NOTE | 2024-04-23 11:01 | XRAY ---
30 seconds of fluoroscopy was used in surgery for a left L2-L4 RFA.
== END 2024-04-23 10:00 | disposition home or self-care (01) ==
LOC: SDC-PAIN 07:48
PROVIDERS: ATTEND Psychiatry & Neurology Pain Medicine
DX: M47.816 Spondylosis without myelopathy or radiculopathy, lumbar region (principal); E11.9 Type 2 diabetes mellitus without complications
CPT/HCPCS: 72100; 77002; 82947; 99100; J2704

== ENCOUNTER 2024-12-03 13:26 | Observation (INO) | payer MEDICARE ==
--- NOTE | 2024-12-03 14:01 | ERPHSYRPT ---
- History of Present Illness Time Seen by Provider: 12/03/24 13:38 Source: patient, family Exam Limitations: no limitations Patient Subjective Stated Complaint: patient stated that she had a fall on 12/01/24 at [facility] due to being knocked over, [facility] and got a head ct and ct of cervical spine which came back clear, patient then had another fall this morning and started feeling dizzy, patient has also felt weak since her first fall on 12/01/24, patient states she has generalized pain 10/10 Triage Nursing Assessment: patient's vitals wnl, skin n/w/d, patient alert and oriented, patient states she is weak and rates pain 10/10, patient has small hematoma to back of head from first fall on 12/01/24 Physician History: 79 years old female with multiple medical problems including type 1 diabetes mellitus, LINO with cirrhosis status post TIPS procedure, presented in the ER with complaints of increased weakness, getting unsteady and dizzy. Patient apparently had a mechanical fall at a restaurant 2 days ago for which she was evaluated at [facility] with negative CT head and cervical spine. Patient is getting more unsteady today, earlier she was at the commode urinating and passed out and fell. Did not hit her head. Patient was feeling weak and could not get up and crawled to the back room. Patient reports aches and pains all over. Headache is not worse than the day before yesterday. No focal numbness tingling or weakness. Denies any chest pain palpitations or shortness of breath. No fever or chills reported. Allergies/Adverse Reactions: No Known Drug Allergies Allergy (Verified 09/12/23 15:25) Home Medications: Furosemide 40 mg [Lasix 40 MG] 40 mg PO DAILY 06/16/22 [History] Insulin Aspart [NovoLOG Insulin] 16 unit SQ AC 06/16/22 [History] Nadolol 20 mg [Corgard 20 MG] 20 mg PO DAILY 06/16/22 [History] Ondansetron [Ondansetron Odt ] 4 mg PO Q6H PRN 06/16/22 [History] Spironolactone [Aldactone] 100 mg PO DAILY 06/16/22 [History] Sucralfate [Carafate] 1 gm PO BID 06/16/22 [History] Vitamin E Mixed [Vitamin E] 400 unit PO BID 06/16/22 [History] ursodioL [Ursodiol] 600 mg PO BID 06/16/22 [History] ALPRAZolam 0.25 MG [xanAX 0.25 MG] 0.25 mg PO BIDPRN PRN 01/22/23 [History] Duloxetine HCl [Cymbalta] 60 mg PO DAILY 01/22/23 [History] Esomeprazole Magnesium [Nexium] 40 mg PO DAILY 01/22/23 [History] Insulin Glargine,Hum.rec.anlog [Basaglar Kwikpen U-100] 48 unit SQ HS 01/22/23 [History] Lactulose [Lactulose 20 gm/30Ml Ud Cup] 20 gm PO BID 01/22/23 [History] Pravastatin Sodium 20 mg PO DAILY 01/22/23 [History] Rifaximin [Xifaxan] 550 mg PO DAILY 01/22/23 [History] Hx Tetanus, Diphtheria Vaccination/Date Given: Yes Hx Influenza Vaccination/Date Given: Yes Hx Pneumococcal Vaccination/Date Given: Yes Travel Risk - International Travel Have you traveled outside of the country in past 3 weeks: No - Emerging Infectious Disease Are you exhibiting symptoms associated with any current EIDs: No - Review of Systems Constitutional: No Symptoms Eyes: No Symptoms Ears, Nose, & Throat: No Symptoms Respiratory: No Symptoms Cardiac: No Symptoms Abdominal/Gastrointestinal: Abdominal Pain (Chronic) Genitourinary Symptoms: No Symptoms Musculoskeletal: Arthralgias Skin: No Symptoms Neurological: Dizziness, Headache Hematologic/Lymphatic: No Symptoms Immunological/Allergic: No Symptoms - Past Medical History Pertinent Past Medical History: Yes Neurological History: No Pertinent History ENT History: No Pertinent History Cardiac History: No Pertinent History Respiratory History: No Pertinent History Endocrine Medical History: Diabetes Type I, Liver Disease Musculoskeletal History: Osteoarthritis GI Medical History: Cirrhosis History: No Pertinent History Psycho-Social History: No Pertinent History Female Reproductive Disorders: No Pertinent History Other Medical History: PSH: R AND L TKA, GALL BLADDER, APPENDECTOMY, TOTAL HYSTERECTOMY, BREAST REDUCTION. PMH: L HAND NUMBNESS (CUBITAL TUNNEL/carpal tunnel - Past Surgical History Past Surgical History: Yes Neuro Surgical History: No Pertinent History Gastrointestinal: Appendectomy, Cholecystectomy Musculoskeletal: Orthopedic Surgery Female Surgical History: Hysterectomy Other Surgical History: alexus knee. left shoulder rotator cuff - Social History Smoking Status: Never smoker Exposure to second hand smoke: No Drug Use: none - Social Determinants of Health Will the patient participate in the screening: Yes Do you worry about a steady place to live?: No Do you have any problems with any of the following?: No known problems In the past 12 months,have you had to go without utilities?: No Transportation Issues: No Has anyone in your support network made you feel unsafe?: No Have you or anyone in your house had to go w/o enough food: No - Nursing Vital Signs Nursing Vital Signs: Initial Vital Signs Temperature 97 F 12/03/24 13:27 Pulse Rate 77 12/03/24 13:27 Respiratory Rate 18 12/03/24 13:27 Blood Pressure 134/60 12/03/24 13:27 O2 Sat by Pulse Oximetry 98 12/03/24 13:27 Pain Scale Pain Intensity 8 - Physical Exam General Appearance: no apparent distress Eye Exam: PERRL/EOMI Ears, Nose, Throat Exam: normal ENT inspection Neck Exam: normal inspection, full range of motion Respiratory Exam: normal breath sounds, lungs clear Cardiovascular Exam: regular rate/rhythm, normal heart sounds Gastrointestinal/Abdomen Exam: soft, normal bowel sounds, tenderness (Minimal generalized to deep palpation) Back Exam: normal inspection, normal range of motion Extremity Exam: normal inspection, normal range of motion Neurologic Exam: alert, oriented x 3, cooperative, manager valuation II-XII nml as tested, normal mood/affect, nml cerebellar function, sensation nml, No motor deficits Skin Exam: normal color SpO2 Interpretation: normal SpO2: 98 O2 Delivery: Room Air - Course EKG Interpreted by Me: RATE (79), Sinus Rhythm, NORMAL AXIS, NORMAL INTERVALS, NORMAL QRS Ordered Tests: Active Orders 24 hr Category Date Time Status Rolling Up Machine Operator STAT Care 12/03/24 13:56 Active EKG-ER Only STAT Care 12/03/24 13:55 Active IV Insertion STAT Care 12/03/24 13:55 Active CHEST 1 VIEW (PORTABLE) Stat Exams 12/03/24 13:56 Completed HEAD WITHOUT CONTRAST [CT] Stat Exams 12/03/24 13:56 Completed CBC W DIFF Stat Lab 12/03/24 14:18 Completed CMP Stat Lab 12/03/24 14:18 Completed Lactic Acid Stat Lab 12/03/24 14:15 Completed MAGNESIUM Stat Lab 12/03/24 14:18 Completed NT PRO BNPII Stat Lab 12/03/24 14:18 Completed TROPONIN Q4H Lab 12/03/24 14:18 Completed TROPONIN Q4H Lab 12/03/24 18:00 Ordered TROPONIN Q4H Lab 12/03/24 22:00 Ordered UA W/RFX UR CULTURE Stat Lab 12/03/24 15:25 Completed Transfer Order Routine Transfer 12/03/24 Ordered Medication Summary Discontinued Medications Generic Name Dose Route Start Last Admin Trade Name Madan PRN Reason Stop Dose Admin Fentanyl Citrate 25 mcg 12/03/24 15:21 12/03/24 15:41 Fentanyl Citrate 100 Mcg/2 Ml* Vial IV 12/03/24 15:22 25 mcg STAT ONE Administration Fentanyl Citrate Confirm 12/03/24 15:39 Fentanyl Citrate 100 Mcg/2 Ml* Vial Administered 12/03/24 15:40 Dose 100 mcg .ROUTE .STK-MED ONE Sodium Chloride 500 mls @ 500 mls/hr 12/03/24 13:57 12/03/24 15:10 Sodium Chloride 0.9% 500 Ml IV 12/03/24 14:56 Infused .Q1H ONE Infusion Sodium Chloride Confirm 12/03/24 14:09 Sodium Chloride 0.9% 500 Ml Administered 12/03/24 14:10 Dose 500 mls @ ud IV .STK-MED ONE Ondansetron HCl 4 mg 12/03/24 15:21 12/03/24 15:41 Ondansetron Hcl 4 Mg/2 Ml Vial IV 12/03/24 15:22 4 mg STAT ONE Administration Ondansetron HCl Confirm 12/03/24 15:37 Ondansetron Hcl 4 Mg/2 Ml Vial Administered 12/03/24 15:38 Dose 4 mg .ROUTE .STK-MED ONE Lab/Rad Data: Laboratory Result Diagrams 12/03/24 14:18 12/03/24 14:18 Laboratory Results 12/03/24 12/03/24 12/03/24 Range/Units 15:25 14:18 14:18 WBC (3.98-10.04) x10^3/uL RBC (3.93-5.22) x10^6/uL Hgb (11.2-15.7) g/dL Hct (34.1-44.9) % MCV (79.4-94.8) fL MCH (25.6-32.2) pg MCHC (32.2-35.5) g/dL RDW (11.7-14.4) % Plt Count (182-369) x10^3/uL MPV (9.4-12.3) fL Gran % (34.0-71.1) % Immature Gran % (Auto) (0.001-0.429) % Nucleat RBC Rel Count (0.00-0.2) % Eos # (Auto) (0.04-0.36) x10^3/uL Immature Gran # (Auto) (0.001-0.031) x10^3u/L Absolute Lymphs (auto) (1.18-3.74) x10^3/uL Absolute Monos (auto) (0.24-0.86) x10^3/uL Absolute Nucleated RBC (0.00-0.012) x10^3u/L Lymphocytes % (19.3-51.7) % Monocytes % (4.7-12.5) % Eosinophils % (0.7-5.8) % Basophils % (0.1-1.2) % Absolute Granulocytes (1.56-6.13) x10^3/uL Basophils # (0.01-0.08) x10^3/uL Sodium 135 (135-145) mmol/L Potassium 4.8 (3.5-5.1) mmol/L Chloride 103 (98-107) mmol/L Carbon Dioxide 26 (22-30) mmol/L Anion Gap 10.6 (5-15) MEQ/L BUN 19 H (7-17) mg/dL Creatinine 0.60 (0.52-1.04) mg/dL Estimated GFR 91.8 ML/MIN Glucose 141 H (74-106) mg/dL Lactic Acid (0.4-2.0) Calcium 9.7 (8.4-10.2) mg/dL Magnesium 1.7 (1.6-2.3) mg/dL Total Bilirubin 1.30 (0.2-1.3) mg/dL AST 42 H (14-36) U/L ALT 23 (0-35) U/L Alkaline Phosphatase 212 H (38-126) U/L Troponin I < 0.012 (0.000-0.033) ng/mL NT-Pro-B Natriuret Pep < 20.0 (<300) pg/mL Serum Total Protein 6.4 (6.3-8.2) g/dL Albumin 3.4 L (3.5-5.0) g/dL Urine Color Yellow (Yellow) Urine Appearance Clear (Clear) Urine pH 7.0 (4.6-8.0) Ur Specific Becket 1.020 (1.005-1.030) Urine Protein Negative (Negative) Urine Glucose (UA) Negative (Negative) mg/dL Urine Ketones Trace A (Negative) Urine Blood Negative (Negative) Urine Nitrite Negative (Negative) Urine Bilirubin Negative (Negative) Urine Urobilinogen 2.0 A (0.2) mg/dL Ur Leukocyte Esterase Small A (Negative) U Hyaline Cast (Auto) NONE SEEN (0-2) /LPF Urine Microscopic RBC 3-5 (0-5) /HPF Urine Microscopic WBC 3-5 (0-5) /HPF Ur Epithelial Cells Rare (None Seen) /HPF Urine Bacteria None Seen (None Seen) /HPF Urine Culture Reflexed NO (NO) 12/03/24 12/03/24 Range/Units 14:18 14:15 WBC 5.4 (3.98-10.04) x10^3/uL RBC 4.32 (3.93-5.22) x10^6/uL Hgb 11.6 (11.2-15.7) g/dL Hct 37.2 (34.1-44.9) % MCV 86.1 (79.4-94.8) fL MCH 26.9 (25.6-32.2) pg MCHC 31.2 L (32.2-35.5) g/dL RDW 17.9 H (11.7-14.4) % Plt Count 142 L (182-369) x10^3/uL MPV 9.0 L (9.4-12.3) fL Gran % 58.4 (34.0-71.1) % Immature Gran % (Auto) 0.2 (0.001-0.429) % Nucleat RBC Rel Count 0.0 (0.00-0.2) % Eos # (Auto) 0.17 (0.04-0.36) x10^3/uL Immature Gran # (Auto) 0.01 (0.001-0.031) x10^3u/L Absolute Lymphs (auto) 1.38 (1.18-3.74) x10^3/uL Absolute Monos (auto) 0.66 (0.24-0.86) x10^3/uL Absolute Nucleated RBC 0.00 (0.00-0.012) x10^3u/L Lymphocytes % 25.6 (19.3-51.7) % Monocytes % 12.2 (4.7-12.5) % Eosinophils % 3.2 (0.7-5.8) % Basophils % 0.4 (0.1-1.2) % Absolute Granulocytes 3.15 (1.56-6.13) x10^3/uL Basophils # 0.02 (0.01-0.08) x10^3/uL Sodium (135-145) mmol/L Potassium (3.5-5.1) mmol/L Chloride (98-107) mmol/L Carbon Dioxide (22-30) mmol/L Anion Gap (5-15) MEQ/L BUN (7-17) mg/dL Creatinine (0.52-1.04) mg/dL Estimated GFR ML/MIN Glucose (74-106) mg/dL Lactic Acid 1.3 (0.4-2.0) Calcium (8.4-10.2) mg/dL Magnesium (1.6-2.3) mg/dL Total Bilirubin (0.2-1.3) mg/dL AST (14-36) U/L ALT (0-35) U/L Alkaline Phosphatase (38-126) U/L Troponin I (0.000-0.033) ng/mL NT-Pro-B Natriuret Pep (<300) pg/mL Serum Total Protein (6.3-8.2) g/dL Albumin (3.5-5.0) g/dL Urine Color (Yellow) Urine Appearance (Clear) Urine pH (4.6-8.0) Ur Specific Becket (1.005-1.030) Urine Protein (Negative) Urine Glucose (UA) (Negative) mg/dL Urine Ketones (Negative) Urine Blood (Negative) Urine Nitrite (Negative) Urine Bilirubin (Negative) Urine Urobilinogen (0.2) mg/dL Ur Leukocyte Esterase (Negative) U Hyaline Cast (Auto) (0-2) /LPF Urine Microscopic RBC (0-5) /HPF Urine Microscopic WBC (0-5) /HPF Ur Epithelial Cells (None Seen) /HPF Urine Bacteria (None Seen) /HPF Urine Culture Reflexed (NO) - Progress Progress: unchanged, re-examined Progress Note: 12/03/24 16:54 Differential diagnosis: Dizziness, generalized weakness, dehydration, dysrhythmia, hypoglycemia, acute UTI/sepsis, stroke 79 years old is evaluated in the ER for dizziness, generalized weakness and unsteady gait. Has negative neuroexam. She is given gentle hydration, EKG showed normal sinus rhythm with no acute ischemic changes. CT head is obtained which is negative. Chest x-ray negative for any acute cardiopulmonary findings. Has normal white count, fairly unremarkable chemistries. No UTI. This could be related to recent mechanical fall with head injury causing concussion. I believe patient would benefit with observation admission, PT OT evaluation. I discussed with Dr. Boss, reviewed history, workup and and agreed with admission. Shared the results of workup with patient and family which they understand and agree. Complexity of problems addressed: High acuity Complexity of data reviewed/analyzed: Moderate to extensive. Risk of complication: Low to moderate Discussed with : Darwin Will see patient in: hospital (observation) Counseled pt/family regarding: lab results, diagnosis, rad results Medical Desision Making - Independent Historian Additional History obtained from: Child - Discussion of managment Care discussed with:: hospitalist Reviewed:: Test results Agreed on:: Treatment plan, place in obs Will see patient: in hospital - Diagnostic Testing Diagnostic test were ordered, analyzed, and reviewed by me: Yes Radiological Interpretation: Interpreted by me, Reviewed by me - Risk of complications The pt has a mod risk of morbidity or mortality based on: Need for prescription drug management The pt has a high risk of morbidity or mortality based on: Decision regarding hospitilization or escalation of hosp level of care - Departure Departure Disposition: Observation Clinical Impression: Generalized weakness, Dizziness, Fall Condition: Stable Critical Care Time: No Referrals: ANN WILHELM DO [Primary Care Provider, [facility]] - Follow up/PCP as directed
[2024-12-03 14:18] LABS: BASOPHIL % 0.4 % (0.1-1.2); Basophil (Absolute #) 0.02 x10^3/uL (0.01-0.08); Eosinophil (Absolute #) 0.17 x10^3/uL (0.04-0.36); Hematocrit 37.2 % (34.1-44.9); Hemoglobin 11.6 g/dL (11.2-15.7); IMMATURE GRAN # 0.01 x10^3u/L (0.001-0.031); IMMATURE GRAN % 0.2 % (0.001-0.429); Lymphocyte (Absolute #) 1.38 x10^3/uL (1.18-3.74); Mean Corpuscular Hemoglobin 26.9 pg (25.6-32.2); Mean Corpuscular Hgb Concent. 31.2 g/dL (32.2-35.5); Monocyte (Absolute #) 0.66 x10^3/uL (0.24-0.86); NUCLEATED RBC # 0.00 x10^3u/L (0.00-0.012); NUCLEATED RBC % 0.0 % (0.00-0.2); Platelet Count 142 x10^3/uL (182-369); Red Blood Count 4.32 x10^6/uL (3.93-5.22); White Blood Count 5.4 x10^3/uL (3.98-10.04)
--- NOTE | 2024-12-03 14:42 | XRAY ---
Indication: General weakness. Comparison: None Portable chest hyperinflated and clear with incidental tiny left apical calcified granuloma. Heart not enlarged. Bony thorax intact with osteopenia, mild degenerative changes, and T10-L1 vertebroplasty. Limited upper abdomen demonstrates incompletely visualized hepatoportal venous stent. Impression: Nonacute chest with chronic features.
[2024-12-03 14:52] LABS: Calcium 9.7 mg/dL (8.4-10.2); Carbon Dioxide 26 mmol/L (22-30); Creatinine 1 0.60 mg/dL (0.52-1.04); EST GLOMERULAR FILTRATION RATE 91.8 ML/MIN; Glucose 141 mg/dL (74-106); NT PRO BNPII < 20.0 pg/mL (<300); Potassium 4.8 mmol/L (3.5-5.1); SGOT/AST 42 U/L (14-36); SGPT/ALT 23 U/L (0-35); Total Protein 6.4 g/dL (6.3-8.2)
--- NOTE | 2024-12-03 15:14 | XRAY ---
Indication: Weakness. Status post fall. Multiple contiguous axial images obtained through the head without contrast. Comparison: January 22, 2023. Normal appearing brain parenchyma, ventricles, and bony calvarium for patient's age. Visualized paranasal sinuses and mastoid air cells are clear. Impression: Continued normal CT head without contrast exam.
[2024-12-03] MEDS ORDERED: Zofran 4 MG/2 ML VIAL ONE (15:37)
[2024-12-03] MEDS ORDERED: SUBLIMAZE 100 MCG/2 ML ONE (15:39)
[2024-12-03] MEDS: Zofran 4 MG/2 ML VIAL IV ONE (15:41)
[2024-12-03] MEDS: SUBLIMAZE 100 MCG/2 ML IV ONE (15:41)
[2024-12-03 15:51] LABS: Glucose, Urine Negative (Negative); Protein,Urine Dip Negative (Negative)
[2024-12-03] MEDS: ZITHROMAX IV*** 500 MG in Sodium Chloride 0.9% 250 ML 250 ML IV STA (17:20)
[2024-12-03] MEDS: ROCEPHIN 2 GM/100 ML NACL 2 GM/100 ML IVPB IV ONE (17:20)
--- NOTE | 2024-12-03 17:50 | PCM.HP ---
History of Present Illness - Chief Complaint Chief Complaint: Generalized weakness, dizziness Date: 12/03/24 History of Present Illness: is [id number] female with a complex medical history including type 1 diabetes mellitus and cirrhosis due to nonalcoholic steatohepatitis (LINO), status post TIPS procedure, presented to the emergency department with complaints of increasing weakness, dizziness, and unsteadiness. Two days ago, she experienced a mechanical fall at a restaurant after being accidentally knocked into. She was evaluated at [facility] in [place], where CT scans of her head and cervical spine were negative, and she was discharged home. Since that incident, she has reported persistent dizziness with head movement, walking, and sitting upright. It appears her symptoms are consistent with benign paroxysmal positional vertigo (BPPV), likely due to dislodged otolith crystals in the inner ear, contributing to her imbalance and dizziness. Earlier today, the patient reports she passed out while urinating on the commode, without any associated bowel movement. She did not hit her head during the episode but was unable to get up due to weakness and had to crawl to her bed. She endorses generalized aches and pains, but her headache is not worse than it was previously. She notes having a hematoma on the back of her head from the prior fall, which she reports is improving. She denies any focal neurological deficits, chest pain, palpitations, shortness of breath, fever, or chills. She also denies any loss of bowel or bladder control, saddle anesthesia, or weakness in the legs. She reports not taking her home medications today. The patient has chronic back pain and is scheduled to receive trigger point injections with Dr. Singer at pain management in [place] tomorrow at 5:30 PM. She expresses a strong desire to keep this appointment, as her back pain has been worse than usual. She states that her back pain is longstanding, and she manages it with narcotic pain medications. On evaluation today, a repeat head CT was performed and found to be negative. Her laboratory results are overall nonconcerning aside from thrombocytopenia, which appears chronic based on prior labs. Meclizine has been started to manage her dizziness, and physical therapy will evaluate her in the morning, as the department is currently unavailable. - Review of Systems Constitutional: Weakness, No Fever, No Chills Eyes: No Symptoms Ears, Nose, & Throat: No Symptoms Respiratory: No Cough, No Short Of Breath Cardiac: No Chest Pain, No Edema, No Syncope Abdominal/Gastrointestinal: No Abdominal Pain, No Nausea, No Vomiting, No Diarrhea Genitourinary Symptoms: No Dysuria Musculoskeletal: No Back Pain, No Neck Pain Skin: Other (hematoma back of head), No Rash Neurological: Dizziness, No Focal Weakness, No Sensory Changes Psychological: No Symptoms Endocrine: No Symptoms Hematologic/Lymphatic: No Symptoms Immunological/Allergic: No Symptoms Medications & Allergies Home Medications: Home Medication List Furosemide 40 mg [Lasix 40 MG] 40 mg PO DAILY 06/16/22 [History Confirmed 12/03/24] Nadolol 20 mg [Corgard 20 MG] 20 mg PO HS 06/16/22 [History Confirmed 12/03/24] Spironolactone [Aldactone] 100 mg PO DAILY 06/16/22 [History Confirmed 12/03/24] ursodioL [Ursodiol] 600 mg PO BID 06/16/22 [History Confirmed 12/03/24] Duloxetine HCl [Cymbalta] 30 mg PO BID 01/22/23 [History Confirmed 12/03/24] Esomeprazole Magnesium [Nexium] 40 mg PO DAILY 01/22/23 [History Confirmed 12/03/24] Pravastatin Sodium 20 mg PO DAILY 01/22/23 [History Confirmed 12/03/24] Rifaximin [Xifaxan] 550 mg PO BID 01/22/23 [History Confirmed 12/03/24] Ammonium Lactate [Ammonium Lactate 12%] 226 gm TOP HS 12/03/24 [History Confirmed 12/03/24] Insulin Glargine,Hum.rec.anlog [Toujaime Edouard Solostar] 54 units SQ DAILY 12/03/24 [History Confirmed 12/03/24] Insulin Lispro [Humalog Kwikpen U-100] 20 units SQ AC 12/03/24 [History Confirmed 12/03/24] Lactulose 30 ml PO BID 12/03/24 [History Confirmed 12/03/24] Oxycodone HCl 5 mg Ir [Oxy-IR 5 MG] 5 mg PO BID 12/03/24 [History Confirmed 12/03/24] Trazodone HCl 50 mg [Desyrel 50 mg] 75 mg PO HS 12/03/24 [History Confirmed 12/03/24] Valacyclovir HCl [Valacyclovir] 1,000 mg PO DAILY PRN 12/03/24 [History Confirmed 12/03/24] Zinc Sulfate 50 mg PO DAILY 12/03/24 [History Confirmed 12/03/24] fluorouraciL [Fluorouracil] 1 each TOP BID 12/03/24 [History Confirmed 12/03/24] polyethylene glycoL 3350 [Polyethylene Glycol 3350] 17 gm PO DAILY PRN 12/03/24 [History Confirmed 12/03/24] Allergies/Adverse Reactions: Allergies Allergy/AdvReac Type Severity Reaction Status Date / Time No Known Drug Allergies Allergy Verified 09/12/23 15:25 - Past Medical History Past Medical History: Yes Neurological History: No Pertinent History ENT History: No Pertinent History Cardiac History: No Pertinent History Respiratory History: No Pertinent History Endocrine Medical History: Diabetes Type I, Liver Disease Musculoskelatal History: Osteoarthritis GI Medical History: Cirrhosis History: No Pertinent History Pyscho-Social History: No Pertinent History Reproductive Disorders: No Pertinent History Comment: PSH: R AND L TKA, GALL BLADDER, APPENDECTOMY, TOTAL HYSTERECTOMY, BREAST REDUCTION. PMH: L HAND NUMBNESS (CUBITAL TUNNEL/carpal tunnel - Past Surgical History Past Surgical History: Yes Neuro Surgical History: No Pertinent History GI Surgical History: Appendectomy, Cholecystectomy Musculskeletal Surgical Hx: Orthopedic Surgery Female Surgical History: Hysterectomy Other Surgical History: alexus knee. left shoulder rotator cuff - Social History Smoking Status: Never smoker Exposure to second hand smoke: No Alcohol: None Drug Use: none - Social Determinants of Health Will the patient participate in the screening: Yes Do you worry about a steady place to live?: No Do you have any problems with any of the following?: No known problems In the past 12 months,have you had to go without utilities?: No Have you or anyone in your house had to go without enough: No Transportation Issues: No Has anyone in your support network made you feel unsafe?: No - Physical Exam Vital Signs: Vital Signs - 24 hr Temp Pulse Resp BP BP Pulse Ox 12/03/24 17:01 98 12/03/24 16:00 81 17 147/75 95 12/03/24 15:30 80 14 138/77 95 12/03/24 15:00 78 17 98 12/03/24 14:50 97 12/03/24 14:40 98 12/03/24 14:37 80 16 136/56 95 12/03/24 14:00 78 128/65 98 12/03/24 13:38 77 134/60 98 12/03/24 13:27 97 F 77 18 134/60 98 General Appearance: no apparent distress, alert, obese Neurologic Exam: alert, oriented x 3, cooperative, communication analyst II-XII nml as tested, normal mood/affect, nml cerebellar function, nml station & gait, sensation nml, motor weakness, No motor deficits Eye Exam: PERRL/EOMI, eyes nml inspection Ears, Nose, Throat Exam: normal ENT inspection, TMs normal, pharynx normal, moist mucous membranes Neck Exam: normal inspection, non-tender, supple, full range of motion Respiratory Exam: normal breath sounds, lungs clear, No respiratory distress Cardiovascular Exam: regular rate/rhythm, normal heart sounds, normal peripheral pulses Gastrointestinal/Abdomen Exam: soft, normal bowel sounds, No tenderness, No mass Back Exam: normal inspection, normal range of motion, No CVA tenderness, No vertebral tenderness Extremity Exam: normal inspection, normal range of motion, pelvis stable Skin Exam: warm, dry, pale, other (hematoma back of head), No rash Lymphatic Exam: No adenopathy Results - Labs Lab/Micro Results: Lab Results-Last 24 Hours 12/03/24 12/03/24 12/03/24 Range/Units 14:15 14:18 14:18 WBC 5.4 (3.98-10.04) x10^3/uL RBC 4.32 (3.93-5.22) x10^6/uL Hgb 11.6 (11.2-15.7) g/dL Hct 37.2 (34.1-44.9) % MCV 86.1 (79.4-94.8) fL MCH 26.9 (25.6-32.2) pg MCHC 31.2 L (32.2-35.5) g/dL RDW 17.9 H (11.7-14.4) % Plt Count 142 L (182-369) x10^3/uL MPV 9.0 L (9.4-12.3) fL Gran % 58.4 (34.0-71.1) % Immature Gran % (Auto) 0.2 (0.001-0.429) % Nucleat RBC Rel Count 0.0 (0.00-0.2) % Eos # (Auto) 0.17 (0.04-0.36) x10^3/uL Immature Gran # (Auto) 0.01 (0.001-0.031) x10^3u/L Absolute Lymphs (auto) 1.38 (1.18-3.74) x10^3/uL Absolute Monos (auto) 0.66 (0.24-0.86) x10^3/uL Absolute Nucleated RBC 0.00 (0.00-0.012) x10^3u/L Lymphocytes % 25.6 (19.3-51.7) % Monocytes % 12.2 (4.7-12.5) % Eosinophils % 3.2 (0.7-5.8) % Basophils % 0.4 (0.1-1.2) % Absolute Granulocytes 3.15 (1.56-6.13) x10^3/uL Basophils # 0.02 (0.01-0.08) x10^3/uL Sodium 135 (135-145) mmol/L Potassium 4.8 (3.5-5.1) mmol/L Chloride 103 (98-107) mmol/L Carbon Dioxide 26 (22-30) mmol/L Anion Gap 10.6 (5-15) MEQ/L BUN 19 H (7-17) mg/dL Creatinine 0.60 (0.52-1.04) mg/dL Estimated GFR 91.8 ML/MIN Glucose 141 H (74-106) mg/dL Lactic Acid 1.3 (0.4-2.0) Calcium 9.7 (8.4-10.2) mg/dL Magnesium 1.7 (1.6-2.3) mg/dL Total Bilirubin 1.30 (0.2-1.3) mg/dL AST 42 H (14-36) U/L ALT 23 (0-35) U/L Alkaline Phosphatase 212 H (38-126) U/L Troponin I (0.000-0.033) ng/mL NT-Pro-B Natriuret Pep < 20.0 (<300) pg/mL Serum Total Protein 6.4 (6.3-8.2) g/dL Albumin 3.4 L (3.5-5.0) g/dL Urine Color (Yellow) Urine Appearance (Clear) Urine pH (4.6-8.0) Ur Specific Dexter (1.005-1.030) Urine Protein (Negative) Urine Glucose (UA) (Negative) mg/dL Urine Ketones (Negative) Urine Blood (Negative) Urine Nitrite (Negative) Urine Bilirubin (Negative) Urine Urobilinogen (0.2) mg/dL Ur Leukocyte Esterase (Negative) U Hyaline Cast (Auto) (0-2) /LPF Urine Microscopic RBC (0-5) /HPF Urine Microscopic WBC (0-5) /HPF Ur Epithelial Cells (None Seen) /HPF Urine Bacteria (None Seen) /HPF Urine Culture Reflexed (NO) 12/03/24 12/03/24 Range/Units 14:18 15:25 WBC (3.98-10.04) x10^3/uL RBC (3.93-5.22) x10^6/uL Hgb (11.2-15.7) g/dL Hct (34.1-44.9) % MCV (79.4-94.8) fL MCH (25.6-32.2) pg MCHC (32.2-35.5) g/dL RDW (11.7-14.4) % Plt Count (182-369) x10^3/uL MPV (9.4-12.3) fL Gran % (34.0-71.1) % Immature Gran % (Auto) (0.001-0.429) % Nucleat RBC Rel Count (0.00-0.2) % Eos # (Auto) (0.04-0.36) x10^3/uL Immature Gran # (Auto) (0.001-0.031) x10^3u/L Absolute Lymphs (auto) (1.18-3.74) x10^3/uL Absolute Monos (auto) (0.24-0.86) x10^3/uL Absolute Nucleated RBC (0.00-0.012) x10^3u/L Lymphocytes % (19.3-51.7) % Monocytes % (4.7-12.5) % Eosinophils % (0.7-5.8) % Basophils % (0.1-1.2) % Absolute Granulocytes (1.56-6.13) x10^3/uL Basophils # (0.01-0.08) x10^3/uL Sodium (135-145) mmol/L Potassium (3.5-5.1) mmol/L Chloride (98-107) mmol/L Carbon Dioxide (22-30) mmol/L Anion Gap (5-15) MEQ/L BUN (7-17) mg/dL Creatinine (0.52-1.04) mg/dL Estimated GFR ML/MIN Glucose (74-106) mg/dL Lactic Acid (0.4-2.0) Calcium (8.4-10.2) mg/dL Magnesium (1.6-2.3) mg/dL Total Bilirubin (0.2-1.3) mg/dL AST (14-36) U/L ALT (0-35) U/L Alkaline Phosphatase (38-126) U/L Troponin I < 0.012 (0.000-0.033) ng/mL NT-Pro-B Natriuret Pep (<300) pg/mL Serum Total Protein (6.3-8.2) g/dL Albumin (3.5-5.0) g/dL Urine Color Yellow (Yellow) Urine Appearance Clear (Clear) Urine pH 7.0 (4.6-8.0) Ur Specific Dexter 1.020 (1.005-1.030) Urine Protein Negative (Negative) Urine Glucose (UA) Negative (Negative) mg/dL Urine Ketones Trace A (Negative) Urine Blood Negative (Negative) Urine Nitrite Negative (Negative) Urine Bilirubin Negative (Negative) Urine Urobilinogen 2.0 A (0.2) mg/dL Ur Leukocyte Esterase Small A (Negative) U Hyaline Cast (Auto) NONE SEEN (0-2) /LPF Urine Microscopic RBC 3-5 (0-5) /HPF Urine Microscopic WBC 3-5 (0-5) /HPF Ur Epithelial Cells Rare (None Seen) /HPF Urine Bacteria None Seen (None Seen) /HPF Urine Culture Reflexed NO (NO) - Radiology Impressions Radiology Exams & Impressions: Radiology Procedures Category Date Time Status CHEST 1 VIEW (PORTABLE) Stat Exams 12/03/24 13:56 Completed HEAD WITHOUT CONTRAST [CT] Stat Exams 12/03/24 13:56 Completed Assessment/Plan (1) BPPV (benign paroxysmal positional vertigo) Current Visit: Yes Status: Acute Qualifiers: Laterality: unspecified laterality Qualified Code(s): H81.10 - Benign paroxysmal vertigo, unspecified ear Assessment & Plan: - PT eval - Meclizine - After mechanical fall 2 days ago - Likely will need OP F/U with PT for treatment Code(s): H81.10 - BENIGN PAROXYSMAL VERTIGO, UNSPECIFIED EAR (2) Traumatic hematoma of head Current Visit: Yes Status: Acute Assessment & Plan: - From 2 days ago - Ice pack PRN - Cervical spine and head CT completed at [facility] negative per pt - CT today of head showed no concerning findings. Code(s): S00.93XA - CONTUSION OF UNSPECIFIED PART OF HEAD, INITIAL ENCOUNTER (3) Generalized weakness Current Visit: Yes Status: Acute Assessment & Plan: - 2:2 BPPV - CBC, CMP reviewed - PT eval - CT head: Impression: Continued normal CT head without contrast exam. - CXR: Impression: Nonacute chest with chronic features. Code(s): R53.1 - WEAKNESS (4) Fall Current Visit: Yes Status: Acute Assessment & Plan: - Mechanical Fall 2 days ago - Fall today 2:2 dizziness - PT eval - Possible need for placement - CBC, CMP reviewed - PT eval Code(s): W19.XXXA - UNSPECIFIED FALL, INITIAL ENCOUNTER (5) Dizziness Current Visit: Yes Status: Acute Assessment & Plan: - Meclizine TID PRN - PT eval - Up with assist Code(s): R42 - DIZZINESS AND GIDDINESS (6) Obesity (BMI 30.0-34.9) Current Visit: Yes Status: Chronic Assessment & Plan: - advised diet and exercise control Code(s): E66.811 - OBESITY, CLASS 1 (7) Type II diabetes mellitus Current Visit: Yes Status: Chronic Qualifiers: Diabetes mellitus terminal manager insulin use: with terminal manager use Diabetes mellitus complication status: without complication Qualified Code(s): E11.9 - Type 2 diabetes mellitus without complications; Z79.4 - medical terminologist (current) use of insulin Assessment & Plan: - accuchecks ac/hs - A1C last checked in november and controlled per old labs reviewed - Continue home dosing of insulin (8) Advanced cirrhosis of liver Current Visit: Yes Status: Chronic Assessment & Plan: - Continue home meds Code(s): K74.60 - UNSPECIFIED CIRRHOSIS OF LIVER (9) Chronic back pain Current Visit: Yes Status: Chronic Assessment & Plan: - Has an appointment tomorrow with Dr. Singer - Pain mgnt for trigger point injections at 5:30pm - Continue home narcotic pain med - Lidocaine patch Code(s): M54.9 - DORSALGIA, UNSPECIFIED; G89.29 - OTHER CHRONIC PAIN (10) Thrombocytopenia Current Visit: Yes Status: Chronic Assessment & Plan: - Chronic per old labs reviewed- trend VTE:SCD PPI: Protonix Next of KIN: Ana Whelan D/C plan: 1-2 days Code status: Mgnt and plan of care time> 45 minutes Telemedicine Encounter - Telemedicine Encounter Telemedicine Encounter: "The entirety of this encounter was performed via Telemedicine" This visit was performed using real-time audio and video connection between my location and thepatients locationwith the assistance of a surrogateat the patients location. Written or verbal consent was obtained from the patient/guardian to perform this visit [facility]. Any patient questions regarding the telemedicine interaction were answered.
[2024-12-03] MEDS ORDERED: Zofran 4 MG/2 ML VIAL IV PRN (17:52)
[2024-12-03] MEDS ORDERED: Miralax Powder 17GM PACKET PO PRN (18:26)
[2024-12-03] MEDS ORDERED: NON-FORMULARY ITEM (Valacyclovir Hcl [Valacyclovir] 1,000 MG Tablet) PO PRN (18:26)
[2024-12-03] MEDS: TYLENOL 325 MG PO PRN (18:38)
[2024-12-03] MEDS: Oxy-IR 5 MG PO SCH (19:28)
[2024-12-03] MEDS ORDERED: Cymbalta 30 MG Capsule ONE (22:09)
[2024-12-03] MEDS ORDERED: LACTULOSE 20 GM/30ML UD CUP ONE (22:09)
[2024-12-03] MEDS: NON-FORMULARY ITEM (Duloxetine Hcl [Cymbalta] 60 MG Capsule.Dr) PO SCH (22:14)
[2024-12-03] MEDS: DESYREL 50 MG PO SCH (22:14)
[2024-12-03] MEDS: Enulose 10 GM/15 ML PO SCH (22:15)
[2024-12-03] MEDS: ANTIVERT 25 MG PO SCH (22:15)
[2024-12-03] MEDS: FLUOROURACIL TOP SCH (22:16)
[2024-12-03] MEDS: AMMONIUM LACTATE 12% TP SCH (22:43)
[2024-12-03] MEDS: URSODIOL 300 MG PO SCH (22:43)
[2024-12-03] MEDS: Lopressor 25MG Tab PO SCH (23:16)
[2024-12-03] MEDS: Xifaxan 200 MG PO SCH (23:17)
[2024-12-04 04:30] LABS: Hematocrit 35.2 % (34.1-44.9); Hemoglobin 11.1 g/dL (11.2-15.7); Mean Corpuscular Hemoglobin 27.0 pg (25.6-32.2); Mean Corpuscular Hgb Concent. 31.5 g/dL (32.2-35.5); Platelet Count 147 x10^3/uL (182-369); Red Blood Count 4.11 x10^6/uL (3.93-5.22); White Blood Count 5.4 x10^3/uL (3.98-10.04)
[2024-12-04 04:49] LABS: Calcium 9.3 mg/dL (8.4-10.2); Carbon Dioxide 26.0 mmol/L (22-30); Creatinine 1 0.7 mg/dL (0.52-1.04); EST GLOMERULAR FILTRATION RATE 88.5 ML/MIN; Glucose 172.0 mg/dL (74-106); Potassium 4.2 mmol/L (3.5-5.1); SGOT/AST 40.0 U/L (14-36); SGPT/ALT 22.0 U/L (0-35); Total Protein 6.7 g/dL (6.3-8.2)
[2024-12-04] MEDS: NON-FORMULARY ITEM (Rifaximin [Xifaxan] 550 MG Tablet) PO SCH (07:14)
[2024-12-04] MEDS: NADOLOL 20 MG PO SCH (07:14)
[2024-12-04] MEDS ORDERED: ACYCLOVIR PO PRN (07:25)
[2024-12-04] MEDS ORDERED: NON-FORMULARY ITEM (Insulin Lispro [Humalog Kwikpen U-100] 100 UNIT/ML Insuln.Pen) SQ SCH (07:30)
[2024-12-04] MEDS ORDERED: MEDICATION INTERVENTION MC SCH ×3 (07:45→08:00)
[2024-12-04 08:17] VITALS: RESP 17; O2SAT 97
[2024-12-04] MEDS: HUMALOG SQ SCH (08:20)
[2024-12-04] MEDS ORDERED: Oxy-IR 5 MG PO PRN (08:24)
[2024-12-04] MEDS: Cymbalta 30 MG Capsule PO SCH (08:31)
[2024-12-04] MEDS: Aldactone 25 MG PO SCH (08:31)
[2024-12-04] MEDS: Protonix 40MG Tablet PO SCH (08:31)
[2024-12-04] MEDS: Lasix 40 MG PO SCH (08:32)
[2024-12-04] MEDS: Lantus Insulin SQ SCH (08:32)
[2024-12-04] MEDS: Zinc Gluconate 50 MG PO SCH (08:33)
[2024-12-04] MEDS: LACTULOSE 20 GM/30ML UD CUP PO SCH (08:44)
[2024-12-04] MEDS: Lidoderm Patch 5% TOP SCH (08:44)
[2024-12-04] MEDS: PATIENT OWN MEDICATION PO SCH ×2 (09:37→09:40)
[2024-12-04] MEDS ORDERED: INSUL SQ SCH (10:00)
[2024-12-04] MEDS ORDERED: SPIRONOLACTONE 100 MG PO SCH (10:00)
[2024-12-04] MEDS ORDERED: INSULIN GLARGINE HUM REC ANLOG 300 UNIT/ML SQ SCH (10:00)
[2024-12-04] MEDS ORDERED: Lopressor 25MG Tab PO SCH (10:00)
[2024-12-04] MEDS ORDERED: ZINC SULFATE 50 MG PO SCH (10:00)
[2024-12-04] MEDS ORDERED: NON-FORMULARY ITEM (Pravastatin Sodium [Pravastatin Sodium] 20 MG Tablet) PO SCH (10:00)
[2024-12-04] MEDS ORDERED: [UNRECOGNIZED DRUG - OTHER] SQ SCH (10:00)
[2024-12-04] MEDS ORDERED: NON-FORMULARY ITEM (Esomeprazole Magnesium [Nexium] 20 MG Capsule.Dr) PO SCH (10:00)
--- NOTE | 2024-12-04 11:44 | PCM.DS ---
Discharge Summary Date of Admission: 12/03/24 17:32 Date of Discharge: 12/04/24 Admitting Physician: RDOY MCDONOUGH MD Primary Care Provider: ANN WILHELM DO Allergies Allergies No Known Drug Allergies Allergy (Verified 09/12/23 15:25) Hospital Summary - Hospital Course Hospital Course: 12/03/24 is [id number] female with a complex medical history including type 1 diabetes mellitus and cirrhosis due to nonalcoholic steatohepatitis (LINO), status post TIPS procedure, presented to the emergency department with complaints of increasing weakness, dizziness, and unsteadiness. Two days ago, she experienced a mechanical fall at a restaurant after being accidentally knocked into. She was evaluated at [facility] in [place], where CT scans of her head and cervical spine were negative, and she was discharged home. Since that incident, she has reported persistent dizziness with head movement, walking, and sitting upright. It appears her symptoms are consistent with benign paroxysmal positional vertigo (BPPV), likely due to dislodged otolith crystals in the inner ear, contributing to her imbalance and dizziness. Earlier today, the patient reports she passed out while urinating on the commode, without any associated bowel movement. She did not hit her head during the episode but was unable to get up due to weakness and had to crawl to her bed. She endorses generalized aches and pains, but her headache is not worse than it was previously. She notes having a hematoma on the back of her head from the prior fall, which she reports is improving. She denies any focal neurological deficits, chest pain, palpitations, shortness of breath, fever, or chills. She also denies any loss of bowel or bladder control, saddle anesthesia, or weakness in the legs. She reports not taking her home medications today. The patient has chronic back pain and is scheduled to receive trigger point injections with Dr. Singer at pain management in [place] tomorrow at 5:30 PM. She expresses a strong desire to keep this appointment, as her back pain has been worse than usual. She states that her back pain is longstanding, and she manages it with narcotic pain medications. On evaluation today, a repeat head CT was performed and found to be negative. Her laboratory results are overall nonconcerning aside from thrombocytopenia, which appears chronic based on prior labs. Meclizine has been started to manage her dizziness, and physical therapy will evaluate her in the morning, as the department is currently unavailable. 12/04/24 This morning, the [place]-Hallpike maneuver was performed on the patient, which elicited slight nystagmus of the right eye. She was administered meclizine, which led to significant improvement in her symptoms. Physical therapy evaluated the patient and reported no concerning findings. The patient also stated that her symptoms had largely resolved with the meclizine. She expressed a desire to be discharged today to follow up with pain management as an outpatient. She will be discharged with a prescription for meclizine and has been set up for outpatient physical therapy through case management. The patient currently denies any further concerns. - Vitals & Intake/Output Vital Signs: Vital Signs Temperature 98 F 12/04/24 08:00 Pulse Rate 77 12/04/24 08:00 Respiratory Rate 17 12/04/24 08:00 Blood Pressure 127/60 12/04/24 08:00 O2 Sat by Pulse Oximetry 97 12/04/24 08:00 Intake & Output: Intake & Output 12/01/24 12/02/24 12/03/24 12/04/24 11:59 11:59 11:59 11:59 Intake Total 840 Balance 840 Weight 89.1 kg - Lab Result Diagrams: 12/04/24 04:20 12/04/24 04:20 Lab Results-Last 24 Hrs: Lab Results-Last 24 Hours 12/03/24 12/03/24 12/03/24 Range/Units 14:15 14:18 14:18 WBC 5.4 (3.98-10.04) x10^3/uL RBC 4.32 (3.93-5.22) x10^6/uL Hgb 11.6 (11.2-15.7) g/dL Hct 37.2 (34.1-44.9) % MCV 86.1 (79.4-94.8) fL MCH 26.9 (25.6-32.2) pg MCHC 31.2 L (32.2-35.5) g/dL RDW 17.9 H (11.7-14.4) % Plt Count 142 L (182-369) x10^3/uL MPV 9.0 L (9.4-12.3) fL Gran % 58.4 (34.0-71.1) % Immature Gran % (Auto) 0.2 (0.001-0.429) % Nucleat RBC Rel Count 0.0 (0.00-0.2) % Eos # (Auto) 0.17 (0.04-0.36) x10^3/uL Immature Gran # (Auto) 0.01 (0.001-0.031) x10^3u/L Absolute Lymphs (auto) 1.38 (1.18-3.74) x10^3/uL Absolute Monos (auto) 0.66 (0.24-0.86) x10^3/uL Absolute Nucleated RBC 0.00 (0.00-0.012) x10^3u/L Lymphocytes % 25.6 (19.3-51.7) % Monocytes % 12.2 (4.7-12.5) % Eosinophils % 3.2 (0.7-5.8) % Basophils % 0.4 (0.1-1.2) % Absolute Granulocytes 3.15 (1.56-6.13) x10^3/uL Basophils # 0.02 (0.01-0.08) x10^3/uL Sodium 135 (135-145) mmol/L Potassium 4.8 (3.5-5.1) mmol/L Chloride 103 (98-107) mmol/L Carbon Dioxide 26 (22-30) mmol/L Anion Gap 10.6 (5-15) MEQ/L BUN 19 H (7-17) mg/dL Creatinine 0.60 (0.52-1.04) mg/dL Estimated GFR 91.8 ML/MIN Glucose 141 H (74-106) mg/dL Lactic Acid 1.3 (0.4-2.0) Calcium 9.7 (8.4-10.2) mg/dL Magnesium 1.7 (1.6-2.3) mg/dL Total Bilirubin 1.30 (0.2-1.3) mg/dL AST 42 H (14-36) U/L ALT 23 (0-35) U/L Alkaline Phosphatase 212 H (38-126) U/L Troponin I (0.000-0.033) ng/mL NT-Pro-B Natriuret Pep < 20.0 (<300) pg/mL Serum Total Protein 6.4 (6.3-8.2) g/dL Albumin 3.4 L (3.5-5.0) g/dL Urine Color (Yellow) Urine Appearance (Clear) Urine pH (4.6-8.0) Ur Specific Compton (1.005-1.030) Urine Protein (Negative) Urine Glucose (UA) (Negative) mg/dL Urine Ketones (Negative) Urine Blood (Negative) Urine Nitrite (Negative) Urine Bilirubin (Negative) Urine Urobilinogen (0.2) mg/dL Ur Leukocyte Esterase (Negative) U Hyaline Cast (Auto) (0-2) /LPF Urine Microscopic RBC (0-5) /HPF Urine Microscopic WBC (0-5) /HPF Ur Epithelial Cells (None Seen) /HPF Urine Bacteria (None Seen) /HPF Urine Culture Reflexed (NO) 12/03/24 12/03/24 12/03/24 Range/Units 14:18 15:25 18:35 WBC (3.98-10.04) x10^3/uL RBC (3.93-5.22) x10^6/uL Hgb (11.2-15.7) g/dL Hct (34.1-44.9) % MCV (79.4-94.8) fL MCH (25.6-32.2) pg MCHC (32.2-35.5) g/dL RDW (11.7-14.4) % Plt Count (182-369) x10^3/uL MPV (9.4-12.3) fL Gran % (34.0-71.1) % Immature Gran % (Auto) (0.001-0.429) % Nucleat RBC Rel Count (0.00-0.2) % Eos # (Auto) (0.04-0.36) x10^3/uL Immature Gran # (Auto) (0.001-0.031) x10^3u/L Absolute Lymphs (auto) (1.18-3.74) x10^3/uL Absolute Monos (auto) (0.24-0.86) x10^3/uL Absolute Nucleated RBC (0.00-0.012) x10^3u/L Lymphocytes % (19.3-51.7) % Monocytes % (4.7-12.5) % Eosinophils % (0.7-5.8) % Basophils % (0.1-1.2) % Absolute Granulocytes (1.56-6.13) x10^3/uL Basophils # (0.01-0.08) x10^3/uL Sodium (135-145) mmol/L Potassium (3.5-5.1) mmol/L Chloride (98-107) mmol/L Carbon Dioxide (22-30) mmol/L Anion Gap (5-15) MEQ/L BUN (7-17) mg/dL Creatinine (0.52-1.04) mg/dL Estimated GFR ML/MIN Glucose (74-106) mg/dL Lactic Acid (0.4-2.0) Calcium (8.4-10.2) mg/dL Magnesium (1.6-2.3) mg/dL Total Bilirubin (0.2-1.3) mg/dL AST (14-36) U/L ALT (0-35) U/L Alkaline Phosphatase (38-126) U/L Troponin I < 0.012 < 0.012 (0.000-0.033) ng/mL NT-Pro-B Natriuret Pep (<300) pg/mL Serum Total Protein (6.3-8.2) g/dL Albumin (3.5-5.0) g/dL Urine Color Yellow (Yellow) Urine Appearance Clear (Clear) Urine pH 7.0 (4.6-8.0) Ur Specific Compton 1.020 (1.005-1.030) Urine Protein Negative (Negative) Urine Glucose (UA) Negative (Negative) mg/dL Urine Ketones Trace A (Negative) Urine Blood Negative (Negative) Urine Nitrite Negative (Negative) Urine Bilirubin Negative (Negative) Urine Urobilinogen 2.0 A (0.2) mg/dL Ur Leukocyte Esterase Small A (Negative) U Hyaline Cast (Auto) NONE SEEN (0-2) /LPF Urine Microscopic RBC 3-5 (0-5) /HPF Urine Microscopic WBC 3-5 (0-5) /HPF Ur Epithelial Cells Rare (None Seen) /HPF Urine Bacteria None Seen (None Seen) /HPF Urine Culture Reflexed NO (NO) 12/03/24 12/04/24 12/04/24 Range/Units 21:58 04:20 04:20 WBC 5.4 (3.98-10.04) x10^3/uL RBC 4.11 (3.93-5.22) x10^6/uL Hgb 11.1 L (11.2-15.7) g/dL Hct 35.2 (34.1-44.9) % MCV 85.6 (79.4-94.8) fL MCH 27.0 (25.6-32.2) pg MCHC 31.5 L (32.2-35.5) g/dL RDW 17.6 H (11.7-14.4) % Plt Count 147 L (182-369) x10^3/uL MPV 8.6 L (9.4-12.3) fL Gran % (34.0-71.1) % Immature Gran % (Auto) (0.001-0.429) % Nucleat RBC Rel Count (0.00-0.2) % Eos # (Auto) (0.04-0.36) x10^3/uL Immature Gran # (Auto) (0.001-0.031) x10^3u/L Absolute Lymphs (auto) (1.18-3.74) x10^3/uL Absolute Monos (auto) (0.24-0.86) x10^3/uL Absolute Nucleated RBC (0.00-0.012) x10^3u/L Lymphocytes % (19.3-51.7) % Monocytes % (4.7-12.5) % Eosinophils % (0.7-5.8) % Basophils % (0.1-1.2) % Absolute Granulocytes (1.56-6.13) x10^3/uL Basophils # (0.01-0.08) x10^3/uL Sodium 136 (135-145) mmol/L Potassium 4.2 (3.5-5.1) mmol/L Chloride 103 (98-107) mmol/L Carbon Dioxide 26 (22-30) mmol/L Anion Gap 10.0 (5-15) MEQ/L BUN 21 H (7-17) mg/dL Creatinine 0.70 (0.52-1.04) mg/dL Estimated GFR 88.5 ML/MIN Glucose 172 H (74-106) mg/dL Lactic Acid (0.4-2.0) Calcium 9.3 (8.4-10.2) mg/dL Magnesium (1.6-2.3) mg/dL Total Bilirubin 1.20 (0.2-1.3) mg/dL AST 40 H (14-36) U/L ALT 22 (0-35) U/L Alkaline Phosphatase 170 H (38-126) U/L Troponin I < 0.012 (0.000-0.033) ng/mL NT-Pro-B Natriuret Pep (<300) pg/mL Serum Total Protein 6.7 (6.3-8.2) g/dL Albumin 3.5 (3.5-5.0) g/dL Urine Color (Yellow) Urine Appearance (Clear) Urine pH (4.6-8.0) Ur Specific Compton (1.005-1.030) Urine Protein (Negative) Urine Glucose (UA) (Negative) mg/dL Urine Ketones (Negative) Urine Blood (Negative) Urine Nitrite (Negative) Urine Bilirubin (Negative) Urine Urobilinogen (0.2) mg/dL Ur Leukocyte Esterase (Negative) U Hyaline Cast (Auto) (0-2) /LPF Urine Microscopic RBC (0-5) /HPF Urine Microscopic WBC (0-5) /HPF Ur Epithelial Cells (None Seen) /HPF Urine Bacteria (None Seen) /HPF Urine Culture Reflexed (NO) Micro Results-Entire Visit: Accuchecks Date 12/03/24 Time 22:30 - Radiology Exams Ordered Rad Exams-Entire Visit: Radiology Procedures Category Date Time Status CHEST 1 VIEW (PORTABLE) Stat Exams 12/03/24 13:56 Completed HEAD WITHOUT CONTRAST [CT] Stat Exams 12/03/24 13:56 Completed - Procedures and Test Procedures and Tests throughout Hospitalization: Therapy Orders & Screens 12/03/24 17:52 PT Eval & Treat ( Order) ONCE Reason for Eval:: weakness, falls Diagnosis: Generalized weakness, dizziness Discharge Exam General Appearance: no apparent distress, alert, obese Neurologic Exam: alert, oriented x 3, cooperative, 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, normal mood/affect, nml cerebellar function, sensation nml, No motor deficits Eye Exam: PERRL, EOMI, eyes nml inspection Ears, Nose, Throat Exam: normal ENT inspection, pharynx normal, moist mucous membranes Neck Exam: normal inspection, non-tender, supple, full range of motion Respiratory Exam: normal breath sounds, lungs clear, No respiratory distress Cardiovascular Exam: regular rate/rhythm, normal heart sounds Gastrointestinal/Abdomen Exam: soft, No tenderness, No mass Pelvic Exam: deferred Rectal Exam: deferred Back Exam: normal inspection, normal range of motion, No CVA tenderness, No vertebral tenderness Extremity Exam: normal inspection, normal range of motion Skin Exam: normal color, warm, dry Final Diagnosis/Problem List - Final Discharge Diagnosis/Problem (1) BPPV (benign paroxysmal positional vertigo) Current Visit: Yes Status: Acute Code(s): H81.10 - BENIGN PAROXYSMAL VERTIGO, UNSPECIFIED EAR (2) Traumatic hematoma of head Current Visit: Yes Status: Acute Code(s): S00.93XA - CONTUSION OF UNSPECIFIED PART OF HEAD, INITIAL ENCOUNTER (3) Generalized weakness Current Visit: Yes Status: Acute Code(s): R53.1 - WEAKNESS (4) Fall Current Visit: Yes Status: Acute Code(s): W19.XXXA - UNSPECIFIED FALL, INITIAL ENCOUNTER (5) Dizziness Current Visit: Yes Status: Acute Code(s): R42 - DIZZINESS AND GIDDINESS (6) Obesity (BMI 30.0-34.9) Current Visit: Yes Status: Chronic Code(s): E66.811 - OBESITY, CLASS 1 (7) Type II diabetes mellitus Current Visit: Yes Status: Chronic (8) Advanced cirrhosis of liver Current Visit: Yes Status: Chronic Code(s): K74.60 - UNSPECIFIED CIRRHOSIS OF LIVER (9) Chronic back pain Current Visit: Yes Status: Chronic Code(s): M54.9 - DORSALGIA, UNSPECIFIED; G89.29 - OTHER CHRONIC PAIN (10) Thrombocytopenia Current Visit: Yes Status: Chronic Assessment & Plan: 1) BPPV (benign paroxysmal positional vertigo) Current Visit: Yes Status: Acute Qualifiers: Laterality: unspecified laterality Qualified Code(s): H81.10 - Benign paroxysmal vertigo, unspecified ear Assessment & Plan: - PT eval - Meclizine - After mechanical fall 2 days ago - Likely will need OP F/U with PT for treatment 12/04 - CM to set up OP PT - Continue Meclizine OP - sxs resolved with medication today Code(s): H81.10 - BENIGN PAROXYSMAL VERTIGO, UNSPECIFIED EAR (2) Traumatic hematoma of head Current Visit: Yes Status: Acute Assessment & Plan: - From 2 days ago - Ice pack PRN - Cervical spine and head CT completed at [facility] negative per pt - CT today of head showed no concerning findings. Code(s): S00.93XA - CONTUSION OF UNSPECIFIED PART OF HEAD, INITIAL ENCOUNTER (3) Generalized weakness Current Visit: Yes Status: Acute Assessment & Plan: - 2:2 BPPV - CBC, CMP reviewed - PT eval - CT head: Impression: Continued normal CT head without contrast exam. - CXR: Impression: Nonacute chest with chronic features. Code(s): R53.1 - WEAKNESS (4) Fall Current Visit: Yes Status: Acute Assessment & Plan: - Mechanical Fall 2 days ago - Fall today 2:2 dizziness - PT eval - Possible need for placement - CBC, CMP reviewed - PT eval Code(s): W19.XXXA - UNSPECIFIED FALL, INITIAL ENCOUNTER (5) Dizziness Current Visit: Yes Status: Acute Assessment & Plan: - Meclizine TID PRN - PT eval - Up with assist Code(s): R42 - DIZZINESS AND GIDDINESS (6) Obesity (BMI 30.0-34.9) Current Visit: Yes Status: Chronic Assessment & Plan: - advised diet and exercise control Code(s): E66.811 - OBESITY, CLASS 1 (7) Type II diabetes mellitus Current Visit: Yes Status: Chronic Qualifiers: Diabetes mellitus longterm insulin use: with longterm use Diabetes mellitus complication status: without complication Qualified Code(s): E11.9 - Type 2 diabetes mellitus without complications; Z79.4 - group home (current) use of insulin Assessment & Plan: - accuchecks ac/hs - A1C last checked in november and controlled per old labs reviewed - Continue home dosing of insulin (8) Advanced cirrhosis of liver Current Visit: Yes Status: Chronic Assessment & Plan: - Continue home meds Code(s): K74.60 - UNSPECIFIED CIRRHOSIS OF LIVER (9) Chronic back pain Current Visit: Yes Status: Chronic Assessment & Plan: - Has an appointment today with Dr. Singer - Pain mgnt for trigger point injections at 5:30pm - Continue home narcotic pain med - Lidocaine patch Code(s): M54.9 - DORSALGIA, UNSPECIFIED; G89.29 - OTHER CHRONIC PAIN (10) Thrombocytopenia Current Visit: Yes Status: Chronic Assessment & Plan: - Chronic per old labs reviewed- trend - F/U OP with PCP D/C plan of care time> 45 minutes - Discharge Discharge Date: 12/04/24 Disposition: Home, Self-Care Condition: Stable Prescriptions: New Meclizine HCl 25 mg [Antivert 25 mg] 25 mg PO TIDPRN PRN 10 Days #30 tablet PRN Reason: Dizziness Continue Furosemide 40 mg [Lasix 40 MG] 40 mg PO DAILY ursodioL [Ursodiol] 600 mg PO BID Spironolactone [Aldactone] 100 mg PO DAILY Nadolol 20 mg [Corgard 20 MG] 20 mg PO HS Pravastatin Sodium 20 mg PO DAILY Duloxetine HCl [Cymbalta] 30 mg PO BID Esomeprazole Magnesium [Nexium] 40 mg PO DAILY Rifaximin [Xifaxan] 550 mg PO BID polyethylene glycoL 3350 [Polyethylene Glycol 3350] 17 gm PO DAILY PRN PRN Reason: Constipation Zinc Sulfate 50 mg PO DAILY Valacyclovir HCl [Valacyclovir] 1,000 mg PO DAILY PRN PRN Reason: Pain Trazodone HCl 50 mg [Desyrel 50 mg] 75 mg PO HS Oxycodone HCl 5 mg Ir [Oxy-IR 5 MG] 5 mg PO BID Insulin Glargine,Hum.rec.anlog [Toujeo Max Solostar] 54 units SQ DAILY Ammonium Lactate [Ammonium Lactate 12%] 226 gm TOP HS Insulin Lispro [Humalog Kwikpen U-100] 20 units SQ AC Lactulose 30 ml PO BID fluorouraciL [Fluorouracil] 1 each TOP BID Additional Instructions: You can buy Lidocaine patches OTC if you found they were helpful and would like to use. Follow up with: BENOIT SINGER MD [CONSULTING PHYSICIAN, PAIN MANAGEMENT] - 12/04/24 5:30 pm ASAEL CUADRA, WHEEL ADJUSTER [ALLIED HEALTH PROFESSION STAFF, FAMILY PRACTICE] - 12/12/24 10:00 am
[2024-12-04 12:49] VITALS: BP 135/60; PULSE 90; TEMP 97.9
[2024-12-04] MEDS ORDERED: ZOCOR 20MG PO SCH (22:00)
[2024-12-04] MEDS ORDERED: REMOVE PATCH REMINDER TOP SCH (22:00)
== END 2024-12-04 15:47 | disposition home or self-care (01) ==
LOC: ED 13:26 → MED SURG 17:32
PROVIDERS: ADMIT Internal Medicine; ATTEND Internal Medicine
DX: H81.10 Benign paroxysmal vertigo, unspecified ear (principal); S00.93XA Contusion of unspecified part of head, initial encounter; R53.1 Weakness; W19.XXXA Unspecified fall, initial encounter; E11.9 Type 2 diabetes mellitus without complications; E66.811 Obesity, class 1; K74.60 Unspecified cirrhosis of liver; M54.9 Dorsalgia, unspecified; G89.29 Other chronic pain; D69.6 Thrombocytopenia, unspecified; Z79.899 Other long term (current) drug therapy; Z79.4 Long term (current) use of insulin
CPT/HCPCS: 36415; 70450; 71045; 80053; 81001; 83605; 83735; 83880; 84484; 85025; 85027; 93005; 93041; 96360; 96374; 96375; 97116; 97163; 97530; 99285; Q3014